=== PATIENT | female | born 1940 | race Caucasian/White ===

== ENCOUNTER 2017-02-27 08:59 | Emergency (ER) | payer MEDICARE ==
--- NOTE | 2017-02-27 11:54 | Emergency Department Report ---
ED Medical Clearance HPI - General Chief complaint: Medical Clearance Stated complaint: MEDICATION REFILL Time Seen by Provider: 02/27/17 11:47 Source: patient Mode of arrival: Ambulatory - History of Present Illness Initial comments: 76-year-old female past medical history diabetes HIV hypertension presents for complaint of accidentally dropping her NovoLog insulin bottle while administering insulin this morning. She says she dropped it on the ground and broke open and she does not have any more. Patient is requesting refill on her insulin. Denies any blurry vision and headache chest pain palpitations shortness of breath nausea. Patient states she has been in usual state of behavior and health otherwise. States she would have gone to primary care doctor but they were closed today. Compliant with Home Medications: Yes Treatments Prior to Arrival: none Home medications: Previous Rx's Medication Instructions Recorded Last Taken Type Insulin Aspart Prot/Aspart(Nf) 16 units SQ QAM #1 vial 02/27/17 Unknown Rx [Novolog Mix 70/30] Allergies/Adverse reactions: Allergies Allergy/AdvReac Type Severity Reaction Status Date / Time Penicillins Allergy Unknown Verified 02/27/17 09:06 ED Review of Systems ROS: Stated complaint: MEDICATION REFILL Other details as noted in HPI Constitutional: denies: chills, fever Eyes: denies: eye pain, eye discharge, vision change ENT: denies: ear pain, throat pain Respiratory: denies: cough, shortness of breath, wheezing Cardiovascular: denies: chest pain, palpitations Endocrine: no symptoms reported Gastrointestinal: denies: abdominal pain, nausea, diarrhea Genitourinary: denies: urgency, dysuria, discharge Musculoskeletal: denies: back pain, joint swelling, arthralgia Skin: denies: rash, lesions Neurological: denies: headache, weakness, paresthesias Psychiatric: denies: anxiety, depression Hematological/Lymphatic: denies: easy bleeding, easy bruising ED Past Medical Hx - Past Medical History Previous Medical History?: Yes Hx Hypertension: Yes Hx Diabetes: Yes Hx HIV: Yes - Surgical History Past Surgical History?: Yes Additional Surgical History: tubal ligation - Social History Smoking Status: Never Smoker Substance Use Type: None - Medications Home Medications: Home Medications Medication Instructions Recorded Confirmed Last Taken Type Insulin Aspart Prot/Aspart(Nf) 16 units SQ QAM #1 vial 02/27/17 Unknown Rx [Novolog Mix 70/30] ED Physical Exam - General Limitations: No Limitations General appearance: alert, in no apparent distress - Head Head exam: Present: atraumatic, normocephalic - Eye Eye exam: Present: normal appearance, PERRL, EOMI - ENT ENT exam: Present: mucous membranes moist - Neck Neck exam: Present: normal inspection - Respiratory Respiratory exam: Present: normal lung sounds bilaterally. Absent: respiratory distress - Cardiovascular Cardiovascular Exam: Present: regular rate, normal rhythm. Absent: systolic murmur, diastolic murmur, rubs, gallop - GI/Abdominal GI/Abdominal exam: Present: soft, normal bowel sounds - Extremities Exam Extremities exam: Present: normal inspection - Back Exam Back exam: Present: normal inspection - Neurological Exam Neurological exam: Present: alert, oriented X3 - Psychiatric Psychiatric exam: Present: normal affect, normal mood - Skin Skin exam: Present: warm, dry, intact, normal color. Absent: rash ED Course Vital Signs 02/27/17 09:03 Temperature 97.9 F Pulse Rate 96 H Respiratory 16 Rate Blood Pressure 120/75 O2 Sat by Pulse 98 Oximetry ED Medical Decision Making - Medical Decision Making A/P: Medication refill, insulin refill 1-blood glucose 188. Patient states she had something small to eat this morning and has not yet had her insulin. Patient has no systemic signs of hyperglycemia, states she feels that she is in her usual state of health is nontoxic appearing awake alert and oriented 3. States that she will go immediately to her pharmacy and refill her prescription of NovoLog 70/30 vial 16units qam, 8units w/ dinner 2-f/u up with primary care ED Disposition Clinical Impression: Medication refill Disposition: TO HOME OR SELFCARE Is pt being admited?: No Does the pt Need Aspirin: No Condition: Stable Prescriptions: Insulin Aspart Prot/Aspart(Nf) [Novolog Mix 70/30] 16 units SQ QAM #1 vial Referrals: [facility] [Outside] - 3-5 Days [facility] [place] [Outside] - 3-5 Days Time of Disposition: 11:55
[2017-02-27 12:24] VITALS: BP 130/65
== END 2017-02-27 12:03 | disposition home or self-care (01) ==
LOC: ED 08:59
DX: Z76.0 Encounter for issue of repeat prescription (principal); I10 Essential (primary) hypertension; E11.9 Type 2 diabetes mellitus without complications
CPT/HCPCS: 82962; 99282

== ENCOUNTER 2017-03-03 11:11 | Inpatient (IN) | payer MEDICARE ==
[2017-03-03] MEDS ORDERED: NACL 0.9% 1000 ML 1,000 ML IV ONE ×3 (12:49→17:03)
--- NOTE | 2017-03-03 12:54 | Emergency Department Report ---
ED Dizziness HPI - General Chief Complaint: Syncope Stated Complaint: LOW BP Time Seen by Provider: 03/03/17 12:46 Source: EMS Mode of arrival: Wheelchair Limitations: No Limitations - History of Present Illness Initial Comments: 76 years old female stated that she was in a longterm and she was feeding and all of a sudden she started having dizziness and double vision and generalized weakness. Her initial blood pressure was low but we don't have the exact number but her blood sugar was 70 and she was given Gatorade in something to eat she said she felt better after that. She denied chest pain no focal weakness numbness or tingling sensation. Patient stated that she is feeling better now. MD Complaint: dizziness, near syncope -: Sudden Timing: sudden onset Description: lightheadedness, off-balance History of Same: No Severity: moderate Improves With: rehydration - Related Data Home Medications Medication Instructions Recorded Confirmed Last Taken Clopidogrel Bisulfate [Plavix] 75 mg PO QDAY 03/03/17 03/03/17 Unknown Efavirenz/Emtricitab/Tenofovir 1 tab PO QDAY 03/03/17 03/03/17 Unknown [Atripla Tablet] Gabapentin [Neurontin] 300 mg PO BID 03/03/17 03/03/17 Unknown Insulin Aspart Prot/Aspart(Nf) 8 units SC QPM 03/03/17 03/03/17 Unknown [NovoLOG Mix 70/30 VIAL] Lisinopril [Zestril TAB] 10 mg PO QDAY 03/03/17 03/03/17 Unknown Previous Rx's Medication Instructions Recorded Last Taken Type Insulin Aspart Prot/Aspart(Nf) 16 units SQ QAM #1 vial 02/27/17 Unknown Rx [Novolog Mix 70/30] Allergies Allergy/AdvReac Type Severity Reaction Status Date / Time Penicillins Allergy Unknown Verified 02/27/17 09:06 ED Review of Systems ROS: Stated complaint: LOW BP Other details as noted in HPI Comment: All other systems reviewed and negative Constitutional: denies: chills, diaphoresis Respiratory: denies: cough, shortness of breath Cardiovascular: denies: chest pain, palpitations Gastrointestinal: denies: nausea, vomiting, hematemesis, melena, hematochezia Musculoskeletal: denies: back pain Neurological: weakness, other (double vision). denies: headache, numbness, paresthesias ED Past Medical Hx - Past Medical History Previous Medical History?: Yes Hx Hypertension: Yes Hx Diabetes: Yes Hx Psychiatric Treatment: Yes (depression) Hx Asthma: Yes Hx COPD: Yes Hx HIV: Yes Additional medical history: CAD - Surgical History Additional Surgical History: tubal ligation - Social History Smoking Status: Former Smoker Substance Use Type: None - Medications Home Medications: Home Medications Medication Instructions Recorded Confirmed Last Taken Type Insulin Aspart Prot/Aspart(Nf) 16 units SQ QAM #1 vial 02/27/17 03/03/17 Unknown Rx [Novolog Mix 70/30] Clopidogrel Bisulfate [Plavix] 75 mg PO QDAY 03/03/17 03/03/17 Unknown History Efavirenz/Emtricitab/Tenofovir 1 tab PO QDAY 03/03/17 03/03/17 Unknown History [Atripla Tablet] Gabapentin [Neurontin] 300 mg PO BID 03/03/17 03/03/17 Unknown History Insulin Aspart Prot/Aspart(Nf) 8 units SC QPM 03/03/17 03/03/17 Unknown History [NovoLOG Mix 70/30 VIAL] Lisinopril [Zestril TAB] 10 mg PO QDAY 03/03/17 03/03/17 Unknown History ED Physical Exam - General Limitations: No Limitations General appearance: alert, in no apparent distress - Head Head exam: Present: atraumatic, normocephalic - Eye Eye exam: Present: normal appearance - ENT ENT exam: Present: normal exam - Neck Neck exam: Present: normal inspection - Respiratory Respiratory exam: Present: normal lung sounds bilaterally. Absent: respiratory distress, wheezes, rales, rhonchi, stridor, chest wall tenderness, accessory muscle use, decreased breath sounds, prolonged expiratory - Cardiovascular Cardiovascular Exam: Present: regular rate, normal rhythm, normal heart sounds - GI/Abdominal GI/Abdominal exam: Present: soft. Absent: distended, tenderness, guarding, rebound, rigid, normal bowel sounds, mass, bruit, pulsatile mass - Extremities Exam Extremities exam: Present: normal inspection - Back Exam Back exam: Present: normal inspection. Absent: CVA tenderness (R), CVA tenderness (L) - Neurological Exam Neurological exam: Present: alert, oriented X3, CN II-XII intact - Skin Skin exam: Present: warm, intact, normal color ED Course Vital Signs 03/03/17 03/03/17 03/03/17 09:00 09:16 09:46 Temperature Pulse Rate Respiratory Rate Blood Pressure 99/47 109/46 118/73 O2 Sat by Pulse Oximetry 03/03/17 03/03/17 03/03/17 10:00 11:29 11:30 Temperature Pulse Rate Respiratory Rate Blood Pressure 108/66 95/44 89/50 O2 Sat by Pulse 100 Oximetry 03/03/17 03/03/17 03/03/17 11:36 11:40 11:45 Temperature Pulse Rate 68 69 71 Respiratory 18 19 21 Rate Blood Pressure 89/50 89/50 91/48 O2 Sat by Pulse 100 100 100 Oximetry 03/03/17 03/03/17 03/03/17 11:48 12:16 12:18 Temperature 98.1 F Pulse Rate 69 69 69 Respiratory 18 19 20 Rate Blood Pressure 95/55 89/48 89/48 O2 Sat by Pulse 100 100 100 Oximetry 03/03/17 03/03/17 03/03/17 12:20 12:22 12:24 Temperature Pulse Rate 69 69 68 Respiratory 19 21 19 Rate Blood Pressure 89/48 89/48 89/48 O2 Sat by Pulse 100 100 100 Oximetry 03/03/17 03/03/17 03/03/17 12:26 12:28 12:30 Temperature Pulse Rate 70 68 76 Respiratory 19 20 23 Rate Blood Pressure 89/48 89/48 94/59 O2 Sat by Pulse 100 100 100 Oximetry 03/03/17 03/03/17 03/03/17 12:32 12:34 12:36 Temperature Pulse Rate 72 75 76 Respiratory 22 24 21 Rate Blood Pressure 94/59 94/59 94/59 O2 Sat by Pulse 100 100 100 Oximetry 03/03/17 03/03/17 03/03/17 12:38 12:40 12:42 Temperature Pulse Rate 80 80 77 Respiratory 22 23 23 Rate Blood Pressure 94/59 95/55 95/55 O2 Sat by Pulse 100 100 100 Oximetry 03/03/17 03/03/17 03/03/17 12:44 12:46 12:48 Temperature Pulse Rate 74 77 79 Respiratory 25 H 23 28 H Rate Blood Pressure 95/55 102/55 102/55 O2 Sat by Pulse 100 100 100 Oximetry 03/03/17 03/03/17 03/03/17 12:50 12:52 12:54 Temperature Pulse Rate 74 79 75 Respiratory 27 H 19 26 H Rate Blood Pressure 102/55 102/55 102/55 O2 Sat by Pulse 92 100 100 Oximetry 03/03/17 03/03/17 03/03/17 12:56 12:58 13:00 Temperature Pulse Rate 76 82 77 Respiratory 28 H 14 29 H Rate Blood Pressure 102/55 102/55 101/58 O2 Sat by Pulse 100 99 100 Oximetry 03/03/17 03/03/17 03/03/17 13:02 13:04 13:20 Temperature Pulse Rate 79 77 Respiratory 31 H 24 Rate Blood Pressure 101/58 101/58 101/58 O2 Sat by Pulse 100 77 L 100 Oximetry 03/03/17 03/03/17 03/03/17 13:24 13:26 13:28 Temperature Pulse Rate Respiratory Rate Blood Pressure 101/58 101/58 101/58 O2 Sat by Pulse 100 100 100 Oximetry 03/03/17 03/03/17 03/03/17 13:32 13:34 13:36 Temperature Pulse Rate Respiratory Rate Blood Pressure 91/47 91/47 91/47 O2 Sat by Pulse 100 Oximetry 03/03/17 03/03/17 03/03/17 13:38 13:40 13:42 Temperature Pulse Rate Respiratory Rate Blood Pressure 91/47 91/47 91/47 O2 Sat by Pulse 100 100 100 Oximetry 03/03/17 03/03/17 03/03/17 13:45 14:31 14:35 Temperature Pulse Rate Respiratory 32 H Rate Blood Pressure 91/47 96/43 96/43 O2 Sat by Pulse 100 Oximetry 03/03/17 03/03/17 03/03/17 14:37 14:39 14:41 Temperature Pulse Rate 80 Respiratory 18 19 19 Rate Blood Pressure 96/43 96/43 96/43 O2 Sat by Pulse Oximetry 03/03/17 03/03/17 03/03/17 14:43 14:45 14:47 Temperature Pulse Rate 75 82 88 Respiratory 21 22 27 H Rate Blood Pressure 96/43 96/43 96/43 O2 Sat by Pulse Oximetry 03/03/17 03/03/17 03/03/17 14:49 14:51 14:53 Temperature Pulse Rate 95 H 93 H 89 Respiratory 25 H 20 35 H Rate Blood Pressure 96/43 96/43 96/43 O2 Sat by Pulse Oximetry 0903/03/17 03/03/17 14:55 14:57 14:59 Temperature Pulse Rate 90 89 93 H Respiratory 19 25 H 23 Rate Blood Pressure 96/43 96/43 96/43 O2 Sat by Pulse Oximetry 03/03/17 03/03/17 03/03/17 15:01 15:03 15:05 Temperature Pulse Rate 90 91 H 89 Respiratory 30 H 29 H 21 Rate Blood Pressure 96/43 96/43 96/43 O2 Sat by Pulse Oximetry 03/03/17 03/03/17 03/03/17 15:07 15:09 15:11 Temperature Pulse Rate 90 89 95 H Respiratory 30 H 27 H 27 H Rate Blood Pressure 96/43 96/43 96/43 O2 Sat by Pulse Oximetry 03/03/17 03/03/17 03/03/17 15:13 15:15 15:17 Temperature Pulse Rate 87 85 93 H Respiratory 21 20 22 Rate Blood Pressure 96/43 96/43 96/43 O2 Sat by Pulse 100 Oximetry 03/03/17 03/03/17 03/03/17 15:19 15:21 15:23 Temperature Pulse Rate 98 H 98 H 95 H Respiratory 32 H 29 H 20 Rate Blood Pressure 135/65 135/65 135/65 O2 Sat by Pulse 100 100 Oximetry 03/03/17 03/03/17 03/03/17 15:25 15:27 15:28 Temperature Pulse Rate 95 H 95 H 93 H Respiratory 25 H 28 H 17 Rate Blood Pressure 135/65 135/65 135/65 O2 Sat by Pulse 100 100 Oximetry 03/03/17 03/03/17 03/03/17 15:31 15:33 15:35 Temperature Pulse Rate 89 85 86 Respiratory 17 23 20 Rate Blood Pressure 197/143 197/143 197/143 O2 Sat by Pulse 99 100 100 Oximetry 03/03/17 03/03/17 03/03/17 15:37 15:39 15:41 Temperature Pulse Rate 88 84 80 Respiratory 28 H 28 H 28 H Rate Blood Pressure 197/143 197/143 197/143 O2 Sat by Pulse 100 100 Oximetry 03/03/17 03/03/17 03/03/17 15:43 15:45 15:46 Temperature Pulse Rate 81 84 77 Respiratory 25 H 23 24 Rate Blood Pressure 197/143 197/143 86/42 O2 Sat by Pulse 100 100 100 Oximetry 03/03/17 03/03/17 03/03/17 15:49 15:51 15:53 Temperature Pulse Rate 74 79 75 Respiratory 19 22 20 Rate Blood Pressure 86/42 86/42 86/42 O2 Sat by Pulse 100 100 100 Oximetry 03/03/17 03/03/17 03/03/17 15:55 15:57 15:59 Temperature Pulse Rate 76 73 72 Respiratory 24 21 21 Rate Blood Pressure 86/42 86/42 86/42 O2 Sat by Pulse 100 100 100 Oximetry 03/03/17 03/03/17 03/03/17 16:00 16:03 16:05 Temperature Pulse Rate 71 71 70 Respiratory 20 20 19 Rate Blood Pressure 83/38 197/143 197/143 O2 Sat by Pulse 100 100 100 Oximetry 03/03/17 03/03/17 03/03/17 16:07 16:09 16:11 Temperature Pulse Rate 70 70 73 Respiratory 19 20 21 Rate Blood Pressure 197/143 197/143 197/143 O2 Sat by Pulse 100 100 99 Oximetry 03/03/17 03/03/17 03/03/17 16:13 16:14 16:15 Temperature Pulse Rate 73 75 Respiratory 22 18 22 Rate Blood Pressure 197/143 69/27 O2 Sat by Pulse 99 95 100 Oximetry 03/03/17 03/03/17 03/03/17 16:17 16:19 16:20 Temperature Pulse Rate 74 81 Respiratory 23 27 H Rate Blood Pressure 69/27 69/27 69/27 O2 Sat by Pulse 99 99 100 Oximetry 03/03/17 03/03/17 03/03/17 16:47 16:49 16:50 Temperature Pulse Rate 79 Respiratory 22 Rate Blood Pressure 69/27 69/27 81/49 O2 Sat by Pulse 97 99 99 Oximetry 03/03/17 03/03/17 03/03/17 16:53 16:55 16:57 Temperature Pulse Rate 79 78 78 Respiratory 18 22 20 Rate Blood Pressure 81/49 81/49 81/49 O2 Sat by Pulse 99 99 98 Oximetry 03/03/17 03/03/17 03/03/17 16:59 17:01 17:02 Temperature Pulse Rate 78 82 80 Respiratory 17 21 17 Rate Blood Pressure 81/49 81/49 50/27 O2 Sat by Pulse 99 100 100 Oximetry 03/03/17 03/03/17 03/03/17 17:05 17:30 17:33 Temperature 98.3 F Pulse Rate 88 Respiratory 11 L 27 H Rate Blood Pressure 102/51 102/51 O2 Sat by Pulse 99 100 Oximetry 03/03/17 03/03/17 03/03/17 17:35 17:37 17:45 Temperature Pulse Rate 76 72 73 Respiratory 18 18 20 Rate Blood Pressure 102/51 102/51 99/60 O2 Sat by Pulse 100 100 100 Oximetry 03/03/17 03/03/17 03/03/17 17:51 18:00 18:11 Temperature Pulse Rate 81 78 80 Respiratory 17 21 24 Rate Blood Pressure 99/60 108/60 50/27 O2 Sat by Pulse 100 100 100 Oximetry 03/03/17 03/03/17 03/03/17 18:21 18:31 18:41 Temperature Pulse Rate 81 78 83 Respiratory 14 18 26 H Rate Blood Pressure 109/58 128/64 128/64 O2 Sat by Pulse 100 100 100 Oximetry - Reevaluation(s) Reevaluation #1: 03/03/17 16:10 Patient stated that she is feeling much better. Treatment for hyperkalemia initiated. Discussed with Dr. Ogden for admission for further treatment and management of hyperkalemia. ED Medical Decision Making - Lab Data Result diagrams: 03/03/17 12:31 03/03/17 14:33 - EKG Data -: EKG Interpreted by Wi EKG shows normal: sinus rhythm Rate: normal - EKG Data When compared to previous EKG there are: no significant change Interpretation: no acute changes - Radiology Data Radiology results: report reviewed - Medical Decision Making Patient presented to his syncope and a low blood pressure, kidney function showed increase in creatinine and BUNs this is possibly due to low blood pressure hypokalemia is corrected with insulin, dextrose, Kayexalate patient also was given calcium gluconate to protect the heart. Patient needs to be admitted to telemetry Dr. Christensen informed Critical care attestation.: If time is entered above; I have spent that time in minutes in the direct care of this critically ill patient, excluding procedure time. ED Disposition Clinical Impression: Syncope, Hyperkalemia Disposition: OP ADMIT IP TO THIS HOSP Is pt being admited?: Yes Condition: Stable
[2017-03-03 12:57] LABS: Basophils % (Auto) 1.4 % (0.0-1.8); Hematocrit 31.8 % (30.3-42.9); Hemoglobin 9.9 gm/dl (10.1-14.3); Mean Corpuscular HGB Conc 31 % (30-34); Mean Corpuscular Hemoglobin 27 pg (28-32); Mean Corpuscular Volume 87 fl (79-97); Platelet Count 263 K/mm3 (140-440); Red Blood Count 3.67 M/mm3 (3.65-5.03); Red Cell Distribution Width 15.1 % (13.2-15.2); White Blood Count 8.1 K/mm3 (4.5-11.0)
[2017-03-03 13:02] LABS: INR 1.02 (0.87-1.13)
[2017-03-03 13:20] LABS: Creatine Kinase MB 2.6 ng/mL (0.0-4.0)
[2017-03-03 13:21] LABS: Alanine Aminotransferase 12 units/L (7-56); Albumin 3.8 g/dL (3.9-5); Albumin/Globulin Ratio 0.9 %; Alkaline Phosphatase 110 units/L (35-129); Anion Gap 19 mmol/L; Bilirubin,Total < 0.20 mg/dL (0.1-1.2); Blood Urea Nitrogen 27 mg/dL (7-17); Carbon Dioxide 19 mmol/L (22-30); Chloride 102.2 mmol/L (98-107); Creatine Kinase 211 units/L (30-135); Glucose 56 mg/dL (65-100); Sodium 133 mmol/L (137-145); Total Protein 7.9 g/dL (6.3-8.2)
--- NOTE | 2017-03-03 14:14 | Cat Scan Report ---
CT HEAD WITHOUT CONTRAST: HISTORY: Syncope. TECHNIQUE: Sequential CT images without contrast. FINDINGS: Images obtained show bilateral prominence of the sulci and ventricles. There are no abnormal intra- or extra-axial blood or fluid collections. There are no focal masses or evidence of mass effect. The murray white matter differentiation appears within normal limits. Regions of periventricular decreased attenuation are consistent with microangiopathic ischemic disease. The posterior fossa structures including the fourth ventricle, cerebellum, and brainstem appear normal. A small fluid level is identified in the right maxillary sinus which could represent acute sinusitis. The remaining paranasal sinuses and mastoid air cells are clear. IMPRESSION: Evidence of atrophy and microangiopathic ischemic disease. No acute intracranial process noted. Correlate for right maxillary sinus disease.
[2017-03-03] MEDS ORDERED: D50W (25GM) Syringe IV PRN (14:33)
[2017-03-03] MEDS ORDERED: KIONEX PO ONE ×2 (14:35→21:50)
[2017-03-03 15:14] LABS: BUN/Creatinine Ratio 13.68; Calcium 8.6 mg/dL (8.4-10.2); Chloride 104.7 mmol/L (98-107)
[2017-03-03 15:41] LABS: Potassium 6.5 mmol/L (3.6-5.0)
[2017-03-03] MEDS ORDERED: CALCIUM GLUCONATE 1,000 MG in NACL 0.9% 100 ML IV ONE (16:30)
[2017-03-03] MEDS ORDERED: NACL 0.9% 1000 ML 1,000 ML ONE (16:57)
--- NOTE | 2017-03-03 19:42 | History and Physical Report ---
History of Present Illness Date of examination: 03/03/17 Date of admission: 03/03/17 16:14 Chief complaint: [place] weak and nearly passed out History of present illness: History of Present Illness 76 years old female stated that she was in a [facility] and she was feeding and all of a sudden she started having dizziness and double vision and generalized weakness. Her initial blood pressure was low but we don't have the exact number but her blood sugar was 70 and she was given Gatorade in something to eat she said she felt better after that. She denied chest pain no focal weakness numbness or tingling sensation. Patient stated that she is feeling better now. MD Complaint: dizziness, near syncope -: Sudden Timing: sudden onset Description: lightheadedness, off-balance History of Same: No Severity: moderate Improves With: rehydration - Related Data Home Medications Medication Instructions Recorded Confirmed Last Taken Clopidogrel Bisulfate [Plavix] 75 mg PO QDAY 03/03/17 03/03/17 Unknown Efavirenz/Emtricitab/Tenofovir 1 tab PO QDAY 03/03/17 03/03/17 Unknown [Atripla Tablet] Gabapentin [Neurontin] 300 mg PO BID 03/03/17 03/03/17 Unknown Insulin Aspart Prot/Aspart(Nf) 8 units SC QPM 03/03/17 03/03/17 Unknown [NovoLOG Mix 70/30 VIAL] Lisinopril [Zestril TAB] 10 mg PO QDAY 03/03/17 03/03/17 Unknown Previous Rx's Medication Instructions Recorded Last Taken Type Insulin Aspart Prot/Aspart(Nf) 16 units SQ QAM #1 vial 02/27/17 Unknown Rx [Novolog Mix 70/30] Allergies Allergy/AdvReac Type Severity Reaction Status Date / Time Penicillins Allergy Unknown Verified 02/27/17 09:06 Past Medical History Previous Medical History?: Yes Hx Hypertension: Yes Hx Diabetes: Yes Hx Psychiatric Treatment: Yes (depression) Hx Asthma: Yes Hx COPD: Yes Hx HIV: Yes Additional medical history: CAD - Surgical History Additional Surgical History: tubal ligation - Social History Smoking Status: Former Smoker Substance Use Type: None Fam Hx Htn - Medications Home Medications: Home Medications Medication Instructions Recorded Confirmed Last Taken Type Insulin Aspart Prot/Aspart(Nf) 16 units SQ QAM #1 vial 02/27/17 03/03/17 Unknown Rx [Novolog Mix 70/30] Clopidogrel Bisulfate [Plavix] 75 mg PO QDAY 03/03/17 03/03/17 Unknown History Efavirenz/Emtricitab/Tenofovir 1 tab PO QDAY 03/03/17 03/03/17 Unknown History [Atripla Tablet] Gabapentin [Neurontin] 300 mg PO BID 03/03/17 03/03/17 Unknown History Insulin Aspart Prot/Aspart(Nf) 8 units SC QPM 03/03/17 03/03/17 Unknown History [NovoLOG Mix 70/30 VIAL] Lisinopril [Zestril TAB] 10 mg PO QDAY 03/03/17 03/03/17 Unknown History Medications and Allergies Allergies Allergy/AdvReac Type Severity Reaction Status Date / Time Penicillins Allergy Unknown Verified 02/27/17 09:06 Home Medications Medication Instructions Recorded Confirmed Last Taken Type Insulin Aspart Prot/Aspart(Nf) 16 units SQ QAM #1 vial 02/27/17 03/03/17 Unknown Rx [Novolog Mix 70/30] Clopidogrel Bisulfate [Plavix] 75 mg PO QDAY 03/03/17 03/03/17 Unknown History Efavirenz/Emtricitab/Tenofovir 1 tab PO QDAY 03/03/17 03/03/17 Unknown History [Atripla Tablet] Gabapentin [Neurontin] 300 mg PO BID 03/03/17 03/03/17 Unknown History Insulin Aspart Prot/Aspart(Nf) 8 units SC QPM 03/03/17 03/03/17 Unknown History [NovoLOG Mix 70/30 VIAL] Lisinopril [Zestril TAB] 10 mg PO QDAY 03/03/17 03/03/17 Unknown History Active Meds: Active Medications Dextrose (D50w (25gm) Syringe) 25 ml IV PRN PRN PRN Reason: Hypoglycemia Review of Systems All systems: negative Constitutional: no weight loss, no weight gain, no fever, no chills, no sweats, no night sweats Eyes: bilateral: blurred vision, photophobia Ears, nose, mouth and throat: no ear pain, no ear discharge, no tinnitis, no decreased hearing, no nose pain, no nasal congestion, no nasal discharge, no sinus pressure, no sinus pain Breasts: deferred Cardiovascular: syncope, lightheadedness, no chest pain, no orthopnea, no palpitations, no rapid/irregular heart beat, no edema, no shortness of breath, no dyspnea on exertion, no paroxysmal nocturnal dyspnea, no claudication, no phlebitis, no high blood pressure, no leg edema, no decreased exercise tolerance Respiratory: no cough, no cough with sputum, no excessive sputum, no hemoptysis , no shortness of breath, no dyspnea on exertion, no congestion, no wheezing, no pleurisy, no pain, no pain on inspiration, no snoring Gastrointestinal: no abdominal pain, no nausea, no vomiting, no diarrhea, no constipation, no change in bowel habits, no hematemesis, no coffee ground emesis Genitourinary Female: no flank pain, no menorrhagia, no dysuria, no urinary frequency, no urgency, no stress incontinence Menstruation: ammenorrhea Rectal: no pain Musculoskeletal: no neck stiffness, no neck pain, no shooting arm pain, no arm numbness/tingling, no low back pain, no shooting leg pain, no leg numbness/ tingling, no redness of joints Integumentary: no rash, no pruritis, no redness, no sores, no wounds, no jaundice, no boils, no blisters Neurological: no head injury, no transient paralysis, no paralysis, no weakness , no parathesias, no numbness, no tingling, no seizures, no syncope, no tremors , no ataxia, no lack of coordination Psychiatric: no anxiety, no memory loss, no change in sleep habits, no sleep disturbances, no insomnia, no hypersomnia, no change in appetite, no change in libido, no suicidal ideation, no disorientation, no hallucinations Endocrine: no cold intolerance, no heat intolerance, no polyphagia, no excessive thirst, no polydipsia, no polyuria, no nocturia Hematologic/Lymphatic: no easy bruising, no easy bleeding Allergic/Immunologic: no urticaria, no allergic rhinitis, no wheezing Exam - Physical Exam Narrative exam: Lying comfortably - Constitutional Vitals: Temp Pulse Resp BP Pulse Ox 98.3 F 83 14 115/67 100 03/03/17 17:05 03/03/17 18:48 03/03/17 18:48 03/03/17 18:48 03/03/17 18:48 General appearance: Present: no acute distress, well-nourished - EENT Eyes: Present: PERRL ENT: hearing intact, clear oral mucosa - Neck Neck: Present: supple, normal ROM - Respiratory Respiratory effort: normal Respiratory: bilateral: CTA - Cardiovascular Rhythm: regular (68) Heart Sounds: Present: S1 & S2. Absent: rub, click - Extremities Extremities: no ischemia, pulses intact, pulses symmetrical, No edema Peripheral Pulses: within normal limits - Abdominal General gastrointestinal: Present: soft, non-tender, non-distended, normal bowel sounds Female genitourinary: Present: normal - Rectal Rectal Exam: deferred - Integumentary Integumentary: Present: clear, warm, dry - Musculoskeletal Musculoskeletal: gait normal, strength equal bilaterally - Psychiatric Psychiatric: appropriate mood/affect, intact judgment & insight - Neurologic Neurologic: CNII-XII intact, moves all extremities - Allied Health Allied health notes reviewed: nursing, case management Results - Labs CBC & Chem 7: 03/03/17 12:31 03/03/17 14:33 Labs: Laboratory Last Values WBC 8.1 K/mm3 (4.5-11.0) 03/03/17 12:31 RBC 3.67 M/mm3 (3.65-5.03) 03/03/17 12:31 Hgb 9.9 gm/dl (10.1-14.3) L 03/03/17 12:31 Hct 31.8 % (30.3-42.9) 03/03/17 12:31 MCV 87 fl (79-97) 03/03/17 12:31 MCH 27 pg (28-32) L 03/03/17 12:31 MCHC 31 % (30-34) 03/03/17 12:31 RDW 15.1 % (13.2-15.2) 03/03/17 12:31 Plt Count 263 K/mm3 (140-440) 03/03/17 12:31 Lymph % (Auto) 22.4 % (13.4-35.0) 03/03/17 12:31 [place] % (Auto) 6.0 % (0.0-7.3) 03/03/17 12:31 Eos % (Auto) 2.0 % (0.0-4.3) 03/03/17 12:31 Baso % (Auto) 1.4 % (0.0-1.8) 03/03/17 12:31 Lymph # 1.8 K/mm3 (1.2-5.4) 03/03/17 12:31 [place] # 0.5 K/mm3 (0.0-0.8) 03/03/17 12:31 Eos # 0.2 K/mm3 (0.0-0.4) 03/03/17 12:31 Baso # 0.1 K/mm3 (0.0-0.1) 03/03/17 12:31 Seg Neutrophils % 68.2 % (40.0-70.0) 03/03/17 12:31 Seg Neutrophils # 5.5 K/mm3 (1.8-7.7) 03/03/17 12:31 PT 13.9 Sec. (12.2-14.9) 03/03/17 12:31 INR 1.02 (0.87-1.13) 03/03/17 12:31 Sodium 135 mmol/L (137-145) L 03/03/17 14:33 Potassium 6.5 mmol/L (3.6-5.0) H* 03/03/17 14:33 Chloride 104.7 mmol/L (98-107) 03/03/17 14:33 Carbon Dioxide 18 mmol/L (22-30) L 03/03/17 14:33 Anion Gap 19 mmol/L 03/03/17 14:33 BUN 26 mg/dL (7-17) H 03/03/17 14:33 Creatinine 1.9 mg/dL (0.7-1.2) H 03/03/17 14:33 Estimated GFR 26 ml/min 03/03/17 14:33 BUN/Creatinine Ratio 13.68 % 03/03/17 14:33 Glucose 60 mg/dL (65-100) L 03/03/17 14:33 POC Glucose 170 (70-105) H 03/03/17 17:38 Calcium 8.6 mg/dL (8.4-10.2) 03/03/17 14:33 Magnesium 2.30 mg/dL (1.7-2.3) 03/03/17 12:31 Total Bilirubin < 0.20 mg/dL (0.1-1.2) 03/03/17 12:31 AST 20 units/L (5-40) 03/03/17 12:31 ALT 12 units/L (7-56) 03/03/17 12:31 Alkaline Phosphatase 110 units/L (35-129) 03/03/17 12:31 Total Creatine Kinase 211 units/L (30-135) H 03/03/17 12:31 CK-MB (CK-2) 2.6 ng/mL (0.0-4.0) 03/03/17 12:31 CK-MB (CK-2) Rel Index 1.2 (0-4) 03/03/17 12:31 Troponin T < 0.010 ng/mL (0.00-0.029) 03/03/17 12:31 Total Protein 7.9 g/dL (6.3-8.2) 03/03/17 12:31 Albumin 3.8 g/dL (3.9-5) L 03/03/17 12:31 Albumin/Globulin Ratio 0.9 % 03/03/17 12:31 Short CBC 03/03/17 Range/Units 12:31 WBC 8.1 (4.5-11.0) K/mm3 Hgb 9.9 L (10.1-14.3) gm/dl Hct 31.8 (30.3-42.9) % Plt Count 263 (140-440) K/mm3 BMP 03/03/17 03/03/17 12:31 14:33 Sodium 133 L 135 L Potassium 7.0 H* 6.5 H* Chloride 102.2 104.7 Carbon Dioxide 19 L 18 L BUN 27 H 26 H Creatinine 2.0 H 1.9 H Glucose 56 L 60 L Calcium 9.0 8.6 Cardiac Enzymes 03/03/17 Range/Units 12:31 Total Creatine Kinase 211 H (30-135) units/L CK-MB (CK-2) 2.6 (0.0-4.0) ng/mL Troponin T < 0.010 (0.00-0.029) ng/mL Liver Function 03/03/17 Range/Units 12:31 Total Bilirubin < 0.20 (0.1-1.2) mg/dL AST 20 (5-40) units/L ALT 12 (7-56) units/L Alkaline Phosphatase 110 (35-129) units/L Albumin 3.8 L (3.9-5) g/dL - Imaging and Cardiology EKG: report reviewed (68/min NSR cannot rule out ant infarct) Assessment and Plan Advance Directives: Yes (Full code) VTE prophylaxis?: Chemical Plan of care discussed with patient/family: Yes - Patient Problems (1) Hyperkalemia Current Visit: Yes Status: Acute Plan to address problem: Patient on Lisinopril which may cause increased k level.Also antiretrovirals.Will stop Lisinopril and start on Amlodipine 5 mg po qd. Patient given calcium gluconate Dextrose with Insulin and Kayexalate in ER. Recheck K level. (2) Syncope Current Visit: Yes Status: Acute Qualifiers: Syncope type: vasovagal syncope Encounter type: E Qualified Code(s): R55 - Syncope and collapse Plan to address problem: Syncope w/u--Echo CDS and serial CE's Lexiscan on (03/05/17 (3) BRUNO (acute kidney injury) Current Visit: Yes Status: Acute Plan to address problem: lisinopril stopped.Initiated on Amlodipine 5 mg po qd Iv fluids for now Nephrology consulted. (4) HTN (hypertension) Current Visit: Yes Status: Chronic Qualifiers: Hypertension type: essential hypertension Qualified Code(s): I10 - Essential (primary) hypertension Plan to address problem: Stopped Lisinopril and initiated on Amlodipine 5 mg po qd (5) IDDM (insulin dependent diabetes mellitus) Current Visit: Yes Status: Chronic Plan to address problem: Cont Home insulin and Coverage Check A1c (6) HIV (human immunodeficiency virus infection) Current Visit: Yes Status: Chronic Plan to address problem: Since 1992.Apparently undetectable viral load.No pcp etc.On anti retrovirals (7) HLD (hyperlipidemia) Current Visit: Yes Status: Chronic Qualifiers: Hyperlipidemia type: mixed hyperlipidemia Qualified Code(s): E78.2 - Mixed hyperlipidemia Plan to address problem: On statins (8) CAD (coronary artery disease) Current Visit: Yes Status: Chronic Qualifiers: Coronary Disease-Associated Artery/Lesion type: [place] artery [place] vs. transplanted heart: N Associated angina: without angina Plan to address problem: On pLAVIX (9) Dementia Current Visit: Yes Status: Chronic Qualifiers: Dementia type: vascular dementia Alzheimer's disease onset: A Dementia behavioral disturbance: without behavioral disturbance Qualified Code(s): F01.50 - Vascular dementia without behavioral disturbance Plan to address problem: On NAMENDA (10) DVT prophylaxis Current Visit: Yes Status: Acute Plan to address problem: On Lovenox
[2017-03-03] MEDS ORDERED: DILAUDID IV PRN (19:43)
[2017-03-03] MEDS ORDERED: AMBIEN PO PRN (19:43)
[2017-03-03] MEDS ORDERED: PERCOCET 5/325 PO PRN (19:43)
[2017-03-03] MEDS ORDERED: ZOFRAN IV PRN (19:43)
[2017-03-03] MEDS ORDERED: TYLENOL PO PRN (19:43)
[2017-03-03] MEDS ORDERED: MILK OF MAGNESIA PO PRN (19:43)
[2017-03-03] MEDS ORDERED: DULCOLAX PR PRN (19:43)
[2017-03-03] MEDS ORDERED: ATRIPLA (NF) PO SCH (20:00)
[2017-03-03] MEDS ORDERED: NACL 0.45% 1000 ML 1,000 ML IV SCH (20:00)
[2017-03-03 21:25] LABS: Creatine Kinase 207 units/L (30-135); Creatine Kinase MB 2.6 ng/mL (0.0-4.0)
[2017-03-03 21:27] LABS: BUN/Creatinine Ratio 12.1; Calcium 8.5 mg/dL (8.4-10.2); Potassium 5.8 mmol/L (3.6-5.0)
[2017-03-03] MEDS ORDERED: D50W (25GM) Syringe IV ONE (21:50)
[2017-03-03] MEDS ORDERED: D50W (25GM) Vial IV ONE (21:50)
[2017-03-03] MEDS: NOVOLOG SUB-Q SCH (22:00)
[2017-03-03] MEDS: NEURONTIN PO SCH (22:54)
[2017-03-03] MEDS: PEPCID PO SCH (22:54)
[2017-03-03] MEDS: VIREAD PO SCH (22:55)
[2017-03-03] MEDS: EMTRIVA PO SCH (22:56)
[2017-03-03] MEDS: SUSTIVA PO SCH (22:56)
[2017-03-03] MEDS: NORVASC PO SCH (23:01)
[2017-03-03] MEDS: PLAVIX PO SCH (23:02)
[2017-03-04 04:28] LABS: Basophils % (Auto) 1.5 % (0.0-1.8); Eosinophils % (Auto) 3.4 % (0.0-4.3); Hematocrit 29.1 % (30.3-42.9); Mean Corpuscular HGB Conc 31 % (30-34); Mean Corpuscular Hemoglobin 27 pg (28-32); Mean Corpuscular Volume 88 fl (79-97); Platelet Count 265 K/mm3 (140-440); Red Blood Count 3.32 M/mm3 (3.65-5.03); Red Cell Distribution Width 15.3 % (13.2-15.2); White Blood Count 8.5 K/mm3 (4.5-11.0)
[2017-03-04 04:35] LABS: Alanine Aminotransferase 14 units/L (7-56); Albumin 3.5 g/dL (3.9-5); Albumin/Globulin Ratio 0.9 %; Alkaline Phosphatase 109 units/L (35-129); Anion Gap 19 mmol/L; Bilirubin,Total < 0.20 mg/dL (0.1-1.2); Blood Urea Nitrogen 20 mg/dL (7-17); Calcium 8.5 mg/dL (8.4-10.2); Carbon Dioxide 16 mmol/L (22-30); Chloride 107.5 mmol/L (98-107); Glucose 88 mg/dL (65-100); Potassium 5.2 mmol/L (3.6-5.0); Sodium 137 mmol/L (137-145); Total Protein 7.4 g/dL (6.3-8.2)
[2017-03-04 04:38] LABS: Creatine Kinase 206 units/L (30-135); Creatine Kinase MB 3.2 ng/mL (0.0-4.0)
--- NOTE | 2017-03-04 07:35 | Consultation ---
History of Present Illness - Reason for Consult Consult date: 03/04/17 acute renal failure, chronic renal failure, hyperkalemia, metabolic acidosis - History of Present Illness The patient is a 76 years old AAF with medical history significant for Obesity, HIV, Hyperlipidemia, CAD s/p stent, hypertension and mild CKD who currently resides at [facility] was brought into the ER yesterday after she developed vertigo, double vision, dizziness and generalized weakness. Her blood sugar was low with some improvement following Gatorade administration. Her creatinine was 2 with potassium of 7 on admission. Patient was also hypotensive. After multiple doses of Kayexalate and Insulin-Dextrose her K level is 5.2 today. Patient was on Lisinopril. She is not followed by [facility]. Most of her doctors are at [place]. Past History Past Medical History: diabetes, hypertension, hyperlipidemia, other (HIV) Medications and Allergies Allergies Allergy/AdvReac Type Severity Reaction Status Date / Time Penicillins Allergy Unknown Verified 02/27/17 09:06 Home Medications Medication Instructions Recorded Confirmed Last Taken Type Insulin Aspart Prot/Aspart(Nf) 16 units SQ QAM #1 vial 02/27/17 03/03/17 Unknown Rx [Novolog Mix 70/30] Clopidogrel Bisulfate [Plavix] 75 mg PO QDAY 03/03/17 03/03/17 Unknown History Efavirenz/Emtricitab/Tenofovir 1 tab PO QDAY 03/03/17 03/03/17 Unknown History [Atripla Tablet] Gabapentin [Neurontin] 300 mg PO BID 03/03/17 03/03/17 Unknown History Insulin Aspart Prot/Aspart(Nf) 8 units SC QPM 03/03/17 03/03/17 Unknown History [NovoLOG Mix 70/30 VIAL] Lisinopril [Zestril TAB] 10 mg PO QDAY 03/03/17 03/03/17 Unknown History Active Meds: Active Medications Acetaminophen (Tylenol) 650 mg PO Q4H PRN PRN Reason: Pain MILD(1-3)/Fever >100.5/CONTRERAS Amlodipine Besylate (Norvasc) 5 mg PO QDAY [facility] Last Admin: 03/03/17 23:01 Dose: Not Given Bisacodyl (Dulcolax) 10 mg CO QDAY PRN PRN Reason: Constipation unrelieved by MOM Clopidogrel Bisulfate (Plavix) 75 mg PO QDAY [facility] Last Admin: 03/03/17 23:02 Dose: Not Given Dextrose (D50w (25gm) Syringe) 25 ml IV PRN PRN PRN Reason: Hypoglycemia Efavirenz (Sustiva) 600 mg PO QHS [facility] Last Admin: 03/03/17 22:56 Dose: 600 mg Emtricitabine (Emtriva) 200 mg PO QHS [facility] Last Admin: 03/03/17 22:56 Dose: 200 mg Enoxaparin Sodium (Lovenox) 30 mg SUB-Q QDAY [facility] Famotidine (Pepcid) 20 mg PO BID [facility] Last Admin: 03/03/17 22:54 Dose: 20 mg Gabapentin (Neurontin) 300 mg PO BID [facility] Last Admin: 03/03/17 22:54 Dose: 300 mg Hydromorphone HCl (Dilaudid) 0.5 mg IV Q3H PRN PRN Reason: Pain , Severe (7-10) Sodium Chloride (Nacl 0.45% 1000 Ml) 1,000 mls @ 75 mls/hr IV DIRECT [facility] Last Admin: 03/03/17 23:03 Dose: 75 mls/hr Insulin Aspart (Novolog) 0 units SUB-Q ACHS [facility] PRN Reason: Protocol Last Admin: 03/03/17 22:00 Dose: 2 units Insulin Human Isoph/Insulin Regular (Novolin 70/30) 8 unit SUB-Q QPM [facility] Insulin Human Isoph/Insulin Regular (Novolin 70/30) 16 unit SUB-Q QAM [facility] Magnesium Hydroxide (Milk Of Magnesia) 30 ml PO Q4H PRN PRN Reason: Constipation Ondansetron HCl (Zofran) 4 mg IV Q3H PRN PRN Reason: N/V unrelieved by Reglan Oxycodone/Acetaminophen (Percocet 5/325) 1 tab PO Q6H PRN PRN Reason: Pain, Moderate (4-6) Tenofovir Disoproxil Fumarate (Viread) 300 mg PO QHS [facility] Last Admin: 03/03/17 22:55 Dose: 300 mg Zolpidem Tartrate (Ambien) 5 mg PO QHS PRN PRN Reason: Insomnia Review of Systems Constitutional: weakness, no weight loss, no weight gain, no fever, no chills, no anorexia, no poor appetite, no chronic pain Ears, nose, mouth and throat: no epistaxis Breasts: deferred Cardiovascular: lightheadedness, high blood pressure, no chest pain, no orthopnea, no edema, no syncope, no shortness of breath, no leg edema Respiratory: no cough, no shortness of breath, no dyspnea on exertion Gastrointestinal: no abdominal pain, no nausea, no vomiting, no diarrhea, no hematemesis, no melena Genitourinary Female: no dysuria, no hematuria Rectal: no bleeding Musculoskeletal: no redness of joints Integumentary: no rash, no wounds, no jaundice Neurological: weakness, vertigo, no head injury, no parathesias, no syncope, no headaches, no convulsions, no aphasia, no paralysis Psychiatric: no change in appetite, no disorientation, no confusion Endocrine: no weight change Hematologic/Lymphatic: no easy bleeding Allergic/Immunologic: no wheezing Exam - Vital Signs Vital signs: Vital Signs BP 99/47 03/03/17 09:00 - General Appearance General appearance: well-developed, well-nourished, appears stated age, obese, other (no distress) EENT: ATNC, PERRL, mucous membranes dry, hearing intact, vision intact Neck: Present: neck supple, trachea midline Respiratory: Clear to Ascultation Heart: regular, S1S2, no murmurs Gastrointestinal: Present: normoactive bowel sounds, obese. Absent: tenderness , distended Integumentary: no rash Neurologic: no focal deficit, no asterixis, alert and oriented x3, CN 3-12 intact Musculoskeletal: Present: other (no edema) Psychiatric: mood/affect appropriate, cooperative Results - Lab Results 03/04/17 03:51 03/04/17 03:51 Most recent lab results Calcium 8.5 mg/dL (8.4-10.2) 03/04/17 03:51 Magnesium 2.30 mg/dL (1.7-2.3) 03/03/17 12:31 - Image Kidney/bladder ultrasound: pending Assessment and Plan - Patient Problems (1) BRUNO (acute kidney injury) Current Visit: Yes Status: Acute Plan to address problem: Acute kidney injury in the setting of volume depletion. Renal function is improving. Continue IV fluids. (2) Hyperkalemia Current Visit: Yes Status: Acute Plan to address problem: Hyperkalemia in the setting of BRUNO. K level is improving. Kayexalate ordered. (3) Volume depletion Current Visit: Yes Status: Acute Plan to address problem: Continue IV fluids. (4) CAD (coronary artery disease) Current Visit: Yes Status: Chronic Qualifiers: Coronary Disease-Associated Artery/Lesion type: [place] artery [place] vs. transplanted heart: N Associated angina: without angina (5) HIV (human immunodeficiency virus infection) Current Visit: Yes Status: Chronic
[2017-03-04] MEDS: NOVOLOG SUB-Q SCH ×4 (07:39→22:36)
[2017-03-04] MEDS ORDERED: KIONEX PR NR (08:00)
--- NOTE | 2017-03-04 09:20 | Progress Note ---
Assessment and Plan Assessment and plan: Patient is a 76 years old female with past medical history of HIV, hyperlipidemia, CAD, hypertension, resident of a residential admitted with double vision, dizziness and generalized weakness with multiple hypoglycemia with some improvement following Gatorade administration. Recommendation patient denied any strokelike symptoms at the time. Autonomic imbalance * A near-syncopal which resolved likely secondary to hypoglycemia. Continue to monitor. * PT OT evaluation and treatment prior to discharge * Echocardiogram pending serial cardiac enzymes pending. * Stress test cancelled as patient had a recent cardiac cath at [place]. Reports pending Hypoglycemia * Corrected. While restarting insulin will hold nighttime insulin. We will also monitor patient's by mouth intake Insulin-dependent diabetes mellitus * As noted above considered to monitor closely. Sliding scale coverage. Monitor by mouth intake. Hyperkalemia * Corrected anticipate total correction with current treatment. Patient received calcium gluconate, dextrose and insulin and Kayexalate in the ER May need Kayexalate if no improvement Acute kidney injury likely secondary to vasomotor nephropathy * Nephrology input appreciated to continue gentle hydration. Hold lisinopril. Hypertension * FITO inhibitor lisinopril discontinued patient's mother amlodipine. We'll recommend reevaluation outpatient this patient does have diabetes and if Fito or ARB cannot be restarted and changed to hydralazine, with isosorbide. HIV * Continue antiretrovirals, patient was diagnosed in 1992 per report undetectable viral load Hyperlipidemia * Continue statin therapy Dementia * Continue Namenda CAD * Continue Plavix DVT and GI prophylaxis History Interval history: Patient seen and examined in no acute distress. reports some mild improvement. Hospitalist Physical - Physical exam Narrative exam: VITAL SIGNS: Reviewed. GENERAL: The patient appeared well nourished and normally developed. Vital signs as documented. HEAD: No signs of head trauma. EYES: Pupils are equal. Extraocular motions intact. EARS: Hearing grossly intact. MOUTH: Oropharynx is normal. NECK: No adenopathy, no JVD. CHEST: Chest with clear breath sounds bilaterally. No wheezes, rales, or rhonchi. CARDIAC: Regular rate and rhythm. S1 and S2, without murmurs, gallops, or rubs. VASCULAR: No Edema. Peripheral pulses normal and equal in all extremities. ABDOMEN: Soft, without detectable tenderness. No sign of distention. No rebound or guarding, and no masses palpated. Bowel Sounds normal. MUSCULOSKELETAL: Good range of motion of all major joints. Extremities without clubbing, cyanosis or edema. NEUROLOGIC EXAM: Alert and oriented x 3. No focal sensory or strength deficits. Speech normal. Follows commands. PSYCHIATRIC: Mood normal. SKIN: No rash or lesions. - Constitutional Vitals: Temp Pulse Resp BP Pulse Ox 98.4 F 79 21 125/70 97 03/04/17 04:29 03/04/17 04:29 03/04/17 04:29 03/04/17 04:03/04/17 04:29 General appearance: Present: no acute distress, well-nourished Results - Labs CBC & Chem 7: 03/04/17 03:51 03/04/17 03:51 Labs: Laboratory Last Values WBC 8.5 K/mm3 (4.5-11.0) 03/04/17 03:51 RBC 3.32 M/mm3 (3.65-5.03) L 03/04/17 03:51 Hgb 9.0 gm/dl (10.1-14.3) L 03/04/17 03:51 Hct 29.1 % (30.3-42.9) L 03/04/17 03:51 MCV 88 fl (79-97) 03/04/17 03:51 MCH 27 pg (28-32) L 03/04/17 03:51 MCHC 31 % (30-34) 03/04/17 03:51 RDW 15.3 % (13.2-15.2) H 03/04/17 03:51 Plt Count 265 K/mm3 (140-440) 03/04/17 03:51 Lymph % (Auto) 22.2 % (13.4-35.0) 03/04/17 03:51 [place] % (Auto) 6.1 % (0.0-7.3) 03/04/17 03:51 Eos % (Auto) 3.4 % (0.0-4.3) 03/04/17 03:51 Baso % (Auto) 1.5 % (0.0-1.8) 03/04/17 03:51 Lymph # 1.9 K/mm3 (1.2-5.4) 03/04/17 03:51 [place] # 0.5 K/mm3 (0.0-0.8) 03/04/17 03:51 Eos # 0.3 K/mm3 (0.0-0.4) 03/04/17 03:51 Baso # 0.1 K/mm3 (0.0-0.1) 03/04/17 03:51 Seg Neutrophils % 66.8 % (40.0-70.0) 03/04/17 03:51 Seg Neutrophils # 5.7 K/mm3 (1.8-7.7) 03/04/17 03:51 PT 13.9 Sec. (12.2-14.9) 03/03/17 12:31 INR 1.02 (0.87-1.13) 03/03/17 12:31 Sodium 137 mmol/L (137-145) 03/04/17 03:51 Potassium 5.2 mmol/L (3.6-5.0) H 03/04/17 03:51 Chloride 107.5 mmol/L (98-107) H 03/04/17 03:51 Carbon Dioxide 16 mmol/L (22-30) L 03/04/17 03:51 Anion Gap 19 mmol/L 03/04/17 03:51 BUN 20 mg/dL (7-17) H 03/04/17 03:51 Creatinine 1.6 mg/dL (0.7-1.2) H 03/04/17 03:51 Estimated GFR 31 ml/min 03/04/17 03:51 BUN/Creatinine Ratio 12.50 % 03/04/17 03:51 Glucose 88 mg/dL (65-100) 03/04/17 03:51 POC Glucose 178 (70-105) H 03/03/17 22:01 Calcium 8.5 mg/dL (8.4-10.2) 03/04/17 03:51 Magnesium 2.30 mg/dL (1.7-2.3) 03/03/17 12:31 Total Bilirubin < 0.20 mg/dL (0.1-1.2) 03/04/17 03:51 AST 20 units/L (5-40) 03/04/17 03:51 ALT 14 units/L (7-56) 03/04/17 03:51 Alkaline Phosphatase 109 units/L (35-129) 03/04/17 03:51 Total Creatine Kinase 206 units/L (30-135) H 03/04/17 03:51 CK-MB (CK-2) 3.2 ng/mL (0.0-4.0) 03/04/17 03:51 CK-MB (CK-2) Rel Index 1.5 (0-4) 03/04/17 03:51 Troponin T < 0.010 ng/mL (0.00-0.029) 03/04/17 03:51 Total Protein 7.4 g/dL (6.3-8.2) 03/04/17 03:51 Albumin 3.5 g/dL (3.9-5) L 03/04/17 03:51 Albumin/Globulin Ratio 0.9 % 03/04/17 03:51
[2017-03-04] MEDS ORDERED: INSULIN ASPART PROTAMINE SQ SCH (10:00)
[2017-03-04] MEDS ORDERED: INSULIN ASPART SQ SCH (10:00)
[2017-03-04] MEDS: NORVASC PO SCH (10:06)
[2017-03-04] MEDS: PEPCID PO SCH ×2 (10:07→22:28)
[2017-03-04 11:09] LABS: Creatine Kinase MB 4.3 ng/mL (0.0-4.0)
[2017-03-04 11:12] LABS: Creatine Kinase 226 units/L (30-135)
[2017-03-04] MEDS: NEURONTIN PO SCH ×2 (13:28→22:28)
[2017-03-04] MEDS: PLAVIX PO SCH (13:28)
[2017-03-04] MEDS: LOVENOX SUB-Q SCH (13:29)
[2017-03-04] MEDS ORDERED: [UNRECOGNIZED DRUG - OTHER] SC SCH (18:00)
[2017-03-04] MEDS ORDERED: INSULIN ASPART PROTAMINE SC SCH (18:00)
[2017-03-04] MEDS: EMTRIVA PO SCH (22:28)
[2017-03-04] MEDS: SUSTIVA PO SCH (22:29)
[2017-03-04] MEDS: VIREAD PO SCH (22:29)
[2017-03-05 00:18] VITALS: BP 112/62
[2017-03-05 06:21] LABS: BUN/Creatinine Ratio 15.38; Calcium 8.3 mg/dL (8.4-10.2); Chloride 105.9 mmol/L (98-107)
[2017-03-05] MEDS: NOVOLOG SUB-Q SCH ×2 (08:03→13:03)
--- NOTE | 2017-03-05 08:19 | Progress Note ---
Assessment and Plan - Patient Problems (1) BRUNO (acute kidney injury) Status: Acute Plan to address problem: Acute kidney injury in the setting of volume depletion. Renal function is better and close to her baseline. (2) Hyperkalemia Status: Acute Plan to address problem: Hyperkalemia in the setting of BRUNO. K level is better. Low potassium diet. Avoid ACEI or ARB. (3) Volume depletion Status: Acute Plan to address problem: Continue IV fluids. (4) CAD (coronary artery disease) Status: Chronic Qualifiers: Coronary Disease-Associated Artery/Lesion type: [place] artery [place] vs. transplanted heart: N Associated angina: without angina (5) HIV (human immunodeficiency virus infection) Status: Chronic Subjective Date of service: 03/05/17 Interval history: Feeling better. Objective - Vital Signs Vital signs: Vital Signs - 12hr 03/05/17 00:17 Respiratory 20 Rate Blood Pressure 112/62 [Left] O2 Sat by Pulse 97 Oximetry - General Appearance General appearance: well-developed, well-nourished, appears stated age, obese, other (no distress) EENT: ATNC, PERRL, mucous membranes moist, hearing intact, vision intact Neck: supple Respiratory: Present: Clear to Ascultation Cardiology: regular, S1S2, no murmurs Gastrointestinal: normoactive bowel sounds, no tenderness, obese Integumentary: no rash Neurologic: no focal deficit, no asterixis, alert and oriented x3, CN 3-12 intact Musculoskeletal: other (no edema) Psychiatric: mood/affect appropriate, cooperative - Lab 03/04/17 03:51 03/05/17 05:29 Most recent lab results Calcium 8.3 mg/dL (8.4-10.2) L 03/05/17 05:29 Magnesium 2.30 mg/dL (1.7-2.3) 03/03/17 12:31
[2017-03-05 09:15] LABS: Bilirubin,Urine NEG (Negative); Blood,Urine NEG (Negative); Ketones,Urine NEG (Negative); Leukocyte Esterase,Urine LG (Negative); Nitrite,Urine NEG (Negative); Urobilinogen,Urine < 2.0 mg/dL (<2.0)
[2017-03-05 09:16] LABS: WBC,Urine > 182.0 /HPF (0.0-6.0)
--- NOTE | 2017-03-05 09:50 | Discharge Summary ---
Providers - Providers Date of Admission: 03/03/17 16:14 Attending physician: TIFF TILLEY MD 03/03/17 19:43 Consult to Physician [CONS] Routine Consulting Provider: DENVER MAYER Reason For Exam: Cr 2.0 Place consult to:: Dr. Mayer Notified:: Genet BURTON Was contact made?: Yes If yes, spoke with:: Dr. Mayer Time called:: 09:30 03/04/17 09:24 Occupational Therapy Evaluate and Treat [CONS] Routine Comment: Reason For Exam: snf assess Physical Therapy Evaluation and Treat [CONS] Routine Comment: Reason For Exam: snf assess Primary care physician: [employer] Hospitalization Reason for admission: syncope Condition: Stable Hospital course: Patient is a 76 years old female with past medical history of HIV, hyperlipidemia, CAD, hypertension, resident of a [facility] admitted with double vision, dizziness and generalized weakness with hypoglycemia with some improvement following Gatorade administration. Recommendation patient denied any strokelike symptoms at the time. Autonomic imbalance * A near-syncopal which resolved likely secondary to hypoglycemia. * Stress test cancelled as patient had a recent cardiac cath at [place]. Reports pending * Echocardiogram revealed a preserved left ventricular function but showed diastolic relaxation abnormality. Diastolic congestive heart failure stable Acute Cystitis-POA * Treated with Cipro x 3 days Hypoglycemia * Corrected. Adjustments were made to her insulin to prevent over hypoglycemic episodes. Education was also provided. Insulin-dependent diabetes mellitus * As noted above considered to monitor closely. Sliding scale coverage. Monitor by mouth intake. Hyperkalemia * Corrected anticipate total correction with current treatment. Patient received calcium gluconate, dextrose and insulin and Kayexalate in the ER May need Kayexalate if no improvement Acute kidney injury likely secondary to vasomotor nephropathy * Nephrology input appreciated to continue gentle hydration. Lisinopril was held patient to have a repeat study constipation and it can be restarted at the time. Hypertension * FITO inhibitor lisinopril discontinued patient's mother amlodipine. We'll recommend reevaluation outpatient this patient does have diabetes and if Fito or ARB cannot be restarted CONSIDER CHANGING TO hydralazine, with isosorbide ON FOLLOW UP WITH PCP OR [employer] HIV * Continue antiretrovirals, patient was diagnosed in 1992 per report undetectable viral load Hyperlipidemia * Continue statin therapy Dementia * Continue Namenda CAD * Continue Plavix Disposition: DC-01 TO HOME OR SELFCARE Time spent for discharge: 35 mins Core Measure Documentation - Palliative Care Palliative Care/ Comfort Measures: Not Applicable - Core Measures Any of the following diagnoses?: none - VTE Discharge Requirements Deep Vein Thrombosis/Pulmonary Embolism Present on Admission: No Exam - Physical Exam Narrative exam: VITAL SIGNS: Reviewed. GENERAL: The patient appeared well nourished and normally developed. Vital signs as documented. HEAD: No signs of head trauma. EYES: Pupils are equal. Extraocular motions intact. EARS: Hearing grossly intact. MOUTH: Oropharynx is normal. NECK: No adenopathy, no JVD. CHEST: Chest with clear breath sounds bilaterally. No wheezes, rales, or rhonchi. CARDIAC: Regular rate and rhythm. S1 and S2, without murmurs, gallops, or rubs. VASCULAR: No Edema. Peripheral pulses normal and equal in all extremities. ABDOMEN: Soft, without detectable tenderness. No sign of distention. No rebound or guarding, and no masses palpated. Bowel Sounds normal. MUSCULOSKELETAL: Good range of motion of all major joints. Extremities without clubbing, cyanosis or edema. NEUROLOGIC EXAM: Alert and oriented x 3. No focal sensory or strength deficits. Speech normal. Follows commands. PSYCHIATRIC: Mood normal. SKIN: No rash or lesions. - Constitutional Vitals: Temp Pulse Resp BP Pulse Ox 98.6 F 78 20 112/62 97 03/04/17 16:00 03/04/17 16:00 03/05/17 00:17 03/05/17 00:17 03/05/17 00:17 Plan Activity: advance as tolerated, fall precautions Diet: diabetic Special Instructions: record daily BP diary, record blood sugar diary Follow up with: RODRIGO MORELOS MD [Primary Care Provider] - 3-5 Days DENVER MAYER MD [Staff Physician] - 7 Days Prescriptions: amLODIPine [Norvasc] 5 mg PO QDAY #30 tablet Ciprofloxacin HCl [Ciprofloxacin TAB] 500 mg PO Q12HR #6 tab
[2017-03-05] MEDS: LOVENOX SUB-Q SCH (13:00)
[2017-03-05] MEDS: PLAVIX PO SCH (13:02)
[2017-03-05] MEDS: NEURONTIN PO SCH (13:02)
[2017-03-05] MEDS: PEPCID PO SCH (13:02)
[2017-03-05] MEDS: NORVASC PO SCH (13:02)
--- NOTE | 2017-03-05 14:24 | Ultrasound Report ---
ULTRASOUND RENAL INDICATION: Acute renal failure. COMPARISON: None similar. FINDINGS: Renal sonography suggests top normal renal cortical echogenicity, not as evident on the right due to possible echogenic coarsening of imaged liver. Grossly preserved renal contours. Mild bilateral hydronephrosis suspected prevoid, though disappeared on the post void images. RIGHT KIDNEY measures 8.8 x 4.4 x 5.3 cm with cortical thickness of 1.4 cm. LEFT KIDNEY estimated at 10.6 x 2.5 x 4 cm with cortical thickness of 1.1 cm. URINARY BLADDER within normal limits. CONCLUSION: 1. Mild bilateral hydronephrosis, though resolved on postvoid images, as described. 2. Slight underlying medical renal disease and fatty liver questioned sonographically. Please correlate. Thank you for the opportunity to participate in this patient's care.
== END 2017-03-05 13:30 | disposition home or self-care (01) | DRG 682 ==
LOC: ED 11:11 → 4A 16:14
PROVIDERS: ADMIT Internal Medicine; ATTEND Internal Medicine
DX: N17.0 Acute kidney failure with tubular necrosis (principal); B20 Human immunodeficiency virus [HIV] disease; I13.0 Hypertensive heart and chronic kidney disease with heart failure and stage 1 through stage 4 chronic kidney disease, or unspecified chronic kidney disease; I50.30 Unspecified diastolic (congestive) heart failure; N30.00 Acute cystitis without hematuria; G90.8 Other disorders of autonomic nervous system; E87.5 Hyperkalemia; Z79.4 Long term (current) use of insulin; Z88.0 Allergy status to penicillin; F32.9 Major depressive disorder, single episode, unspecified; J44.9 Chronic obstructive pulmonary disease, unspecified; I25.10 Atherosclerotic heart disease of native coronary artery without angina pectoris; Z98.51 Tubal ligation status; Z87.891 Personal history of nicotine dependence; F03.90 Unspecified dementia, unspecified severity, without behavioral disturbance, psychotic disturbance, mood disturbance, and anxiety; E78.5 Hyperlipidemia, unspecified; E11.22 Type 2 diabetes mellitus with diabetic chronic kidney disease; N18.9 Chronic kidney disease, unspecified; E11.649 Type 2 diabetes mellitus with hypoglycemia without coma
CPT/HCPCS: 36415; 70450; 76770; 80048; 80053; 81001; 82550; 82553; 82570; 82962; 83735; 84300; 84484; 85025; 85610; 93005; 93010; 93306; 93880; 96361; 96365; 96366; 96375; J0610; J1650; J1815; J7030

== ENCOUNTER 2017-12-04 19:17 | Inpatient (IN) | payer MEDICARE ==
[2017-12-04] MEDS ORDERED: NACL 0.9% 1000 ML 1,000 ML IV ONE (19:47)
[2017-12-04] MEDS ORDERED: ASPIRIN PO ONE (19:47)
[2017-12-04] MEDS ORDERED: DUONEB *Not for PRN Use IH ONE (19:48)
--- NOTE | 2017-12-04 19:53 | Emergency Department Report ---
ED Chest Pain HPI - General Chief Complaint: Dyspnea/Respdistress Stated Complaint: DIFFUCULTY IN BREATHING Time Seen by Provider: 12/04/17 19:34 Source: patient, family, EMS Mode of arrival: Stretcher Limitations: No Limitations - History of Present Illness Initial Comments: ms Chavez is a 76 year-old woman with hx of HTN, DM, IDDM, HIV (undetectable, normal CD4+ on meds), CAd (s/p 4 stents) who presents with shortness of breath. 3 days of cough, shortness of breath. Endorses fever. Substernal chest pain that worsens with breathing, movement. On plavix. Cough is productive. fever, chills, sweats. Decreased PO. MD Complaint: chest pain, other (dyspnea) -: Gradual Onset: during rest, during exertion Pain Location: substernal Pain Radiation: none Severity: moderate Severity scale (0 -10): 10 Quality: heaviness Worsens With: inspiration Other Symptoms: cough, fever Treatments Prior to Arrival: none - Related Data Home Medications Medication Instructions Recorded Confirmed Last Taken Clopidogrel Bisulfate [Plavix] 75 mg PO QDAY 03/03/17 03/11/17 Unknown Efavirenz/Emtricitab/Tenofovir 1 tab PO QDAY 03/03/17 03/11/17 Unknown [Atripla Tablet] Gabapentin [Neurontin] 300 mg PO BID 03/03/17 03/11/17 Unknown Insulin Aspart Prot/Aspart(Nf) 8 units SC QPM 03/03/17 03/11/17 Unknown [NovoLOG Mix 70/30 VIAL] Previous Rx's Medication Instructions Recorded Last Taken Type Insulin Aspart Prot/Aspart(Nf) 16 units SQ QAM #1 vial 02/27/17 Unknown Rx [NovoLOG Mix 70/30 VIAL] Ciprofloxacin HCl [Ciprofloxacin 500 mg PO Q12HR #6 tab 03/05/17 Unknown Rx TAB] amLODIPine [Norvasc] 5 mg PO QDAY #30 tablet 03/05/17 Unknown Rx Levofloxacin [Levaquin] 750 mg PO QDAY #8 tablet 03/12/17 Unknown Rx Allergies Allergy/AdvReac Type Severity Reaction Status Date / Time Penicillins Allergy Unknown Verified 02/27/17 09:06 Heart Score - HEART Score History: Slightly suspicious EKG: Normal Age: > 65 Risk factors: > 3 risk factors or hx of atherosclerotic disease Troponin: < normal limit HEART Score: 4 ED Review of Systems ROS: Stated complaint: DIFFUCULTY IN BREATHING Other details as noted in HPI Comment: All other systems reviewed and negative ED Past Medical Hx - Past Medical History Previous Medical History?: Yes Hx Hypertension: Yes Hx Congestive Heart Failure: Yes Hx Diabetes: Yes Hx Psychiatric Treatment: Yes (depression) Hx Asthma: Yes Hx COPD: Yes Hx HIV: Yes Additional medical history: CAD - Surgical History Hx Coronary Stent: Yes Additional Surgical History: tubal ligation, stents - Social History Smoking Status: Unknown if ever smoked Substance Use Type: None - Medications Home Medications: Home Medications Medication Instructions Recorded Confirmed Last Taken Type Insulin Aspart Prot/Aspart(Nf) 16 units SQ QAM #1 vial 02/27/17 03/11/17 Unknown Rx [NovoLOG Mix 70/30 VIAL] Clopidogrel Bisulfate [Plavix] 75 mg PO QDAY 03/03/17 03/11/17 Unknown History Efavirenz/Emtricitab/Tenofovir 1 tab PO QDAY 03/03/17 03/11/17 Unknown History [Atripla Tablet] Gabapentin [Neurontin] 300 mg PO BID 03/03/17 03/11/17 Unknown History Insulin Aspart Prot/Aspart(Nf) 8 units SC QPM 03/03/17 03/11/17 Unknown History [NovoLOG Mix 70/30 VIAL] Ciprofloxacin HCl [Ciprofloxacin 500 mg PO Q12HR #6 tab 03/05/17 03/11/17 Unknown Rx TAB] amLODIPine [Norvasc] 5 mg PO QDAY #30 tablet 03/05/17 03/11/17 Unknown Rx Levofloxacin [Levaquin] 750 mg PO QDAY #8 tablet 03/12/17 Unknown Rx ED Physical Exam - General Limitations: No Limitations General appearance: alert, in no apparent distress - Head Head exam: Present: atraumatic, normocephalic - Eye Eye exam: Present: normal appearance - ENT ENT exam: Present: mucous membranes moist - Neck Neck exam: Present: normal inspection - Respiratory Respiratory exam: Present: other (expiratory wheeze that clears with coughing. good air movement in all [place]). Absent: respiratory distress - Cardiovascular Cardiovascular Exam: Present: regular rate, normal rhythm. Absent: systolic murmur, diastolic murmur, rubs, gallop - GI/Abdominal GI/Abdominal exam: Present: soft. Absent: distended, tenderness - Extremities Exam Extremities exam: Present: normal inspection - Back Exam Back exam: Present: normal inspection - Neurological Exam Neurological exam: Present: alert, oriented X3 - Psychiatric Psychiatric exam: Present: normal affect, normal mood - Skin Skin exam: Present: warm, dry, intact, normal color. Absent: rash ED Course Vital Signs 12/04/17 12/04/17 12/04/17 19:32 19:43 19:45 Temperature 99.0 F Pulse Rate 96 H 99 H 109 H Pulse Rate [ Anterior Bilateral Throughout] Respiratory 28 H 26 H 22 Rate Respiratory Rate [Anterior Bilateral Throughout] Blood Pressure 136/68 136/68 Blood Pressure 136/68 [Right] O2 Sat by Pulse 95 Oximetry 12/04/17 12/04/17 12/04/17 20:00 20:15 20:18 Temperature Pulse Rate 99 H 128 H Pulse Rate [ 97 H Anterior Bilateral Throughout] Respiratory 16 26 H Rate Respiratory 26 H Rate [Anterior Bilateral Throughout] Blood Pressure 119/74 119/74 Blood Pressure [Right] O2 Sat by Pulse 88 Oximetry 12/04/17 12/04/17 12/04/17 20:22 20:28 20:31 Temperature Pulse Rate Pulse Rate [ 99 H Anterior Bilateral Throughout] Respiratory 37 H Rate Respiratory 25 H Rate [Anterior Bilateral Throughout] Blood Pressure 155/88 Blood Pressure [Right] O2 Sat by Pulse 97 Oximetry 12/04/17 12/04/17 12/04/17 20:42 20:45 21:00 Temperature Pulse Rate 100 H 100 H Pulse Rate [ Anterior Bilateral Throughout] Respiratory 20 26 H 24 Rate Respiratory Rate [Anterior Bilateral Throughout] Blood Pressure 119/74 147/80 Blood Pressure [Right] O2 Sat by Pulse Oximetry 12/04/17 21:15 Temperature Pulse Rate 99 H Pulse Rate [ Anterior Bilateral Throughout] Respiratory 27 H Rate Respiratory Rate [Anterior Bilateral Throughout] Blood Pressure 155/88 Blood Pressure [Right] O2 Sat by Pulse 100 Oximetry ED Medical Decision Making - Lab Data Result diagrams: 12/04/17 20:42 12/04/17 20:42 - EKG Data -: EKG Interpreted by Wa ([id number]) EKG shows normal: sinus rhythm, axis (normal), intervals (wnl), ST-T waves ( without evidence of acute ischemia) Rate: normal - Radiology Data PROCEDURE: XR CHEST 1V AP TECHNIQUE: Chest radiograph anteroposterior view. HISTORY: Chest pain. COMPARISON: No prior studies are available for comparison. FINDINGS: Heart: The heart size is top-normal. Mediastinum/Vessels: Aortic tortuosity. Lungs/Pleural space: Low lung volumes. Perihilar and bibasilar opacities. Symmetric biapical pleural thickening. Bony thorax: Mild osteopenia with degenerative changes of spine. Life support devices: None. IMPRESSION: Heart size top-normal. Aortic tortuosity. Low lung volumes with perihilar and bibasilar opacities. Consider bronchovascular crowding/atelectasis, also consider mild congestive heart failure or pneumonitis. - Medical Decision Making Ms Chavez is a 76 year-old woman who presents with cough, fevers, shortness of breath, chest pain. 2 days duration. No radiation of pain. Exam with chest congestion, no wheezing/rales. VSS on room air. Suspect this is PNA, ACS, URI. Much less likely PE based on history and exam. CXR without focal infiltrate. Given breathing treatment and asa. EKg non-ischemic. trop neg. WBC normal. Lytes wnl. Self-reported normal CD4+ count. Low clinical suspicion for PCP pneumonia. No LDH ordered. Suspect this is atypical PNA based on symptoms and history. 1L NS. Giving levaquin 750mg PO. Was on 2L NC. When taken off, is tachypneic to 30 with HR 100-105. Placed back on 2L. Will admit to observation for atypical PNA and shortness of breath. Has poor social situation, lives in homeless alf in which she cannot stay during the day. Critical Care Time: No Critical care attestation.: If time is entered above; I have spent that time in minutes in the direct care of this critically ill patient, excluding procedure time. ED Disposition Clinical Impression: Atypical pneumonia Disposition: DC- OP ADMIT IP TO THIS HOSP Is pt being admited?: Yes Does the pt Need Aspirin: No Condition: Stable Referrals: PRIMARY CARE, [Primary Care Provider] - 3-5 Days
--- NOTE | 2017-12-04 20:45 | XRay Report ---
FINAL REPORT PROCEDURE: XR CHEST 1V AP TECHNIQUE: Chest radiograph anteroposterior view. HISTORY: Chest pain. COMPARISON: No prior studies are available for comparison. FINDINGS: Heart: The heart size is top-normal. Mediastinum/Vessels: Aortic tortuosity. Lungs/Pleural space: Low lung volumes. Perihilar and bibasilar opacities. Symmetric biapical pleural thickening. Bony thorax: Mild osteopenia with degenerative changes of spine. Life support devices: None. IMPRESSION: Heart size top-normal. Aortic tortuosity. Low lung volumes with perihilar and bibasilar opacities. Consider bronchovascular crowding/atelectasis, also consider mild congestive heart failure or pneumonitis.
[2017-12-04 21:01] LABS: Hematocrit 33.6 % (30.3-42.9); Hemoglobin 10.6 gm/dl (10.1-14.3); Mean Corpuscular HGB Conc 32 % (30-34); Mean Corpuscular Hemoglobin 28 pg (28-32); Mean Corpuscular Volume 87 fl (79-97); Platelet Count 213 K/mm3 (140-440); Red Blood Count 3.85 M/mm3 (3.65-5.03); Red Cell Distribution Width 16.5 % (13.2-15.2)
[2017-12-04 21:22] LABS: Lymphocytes % (Auto) 10.6 % (13.4-35.0); Monocytes % (Auto) 8.9 % (0.0-7.3)
[2017-12-04 21:23] LABS: Alanine Aminotransferase 14 units/L (7-56); Albumin 4.1 g/dL (3.9-5); BUN/Creatinine Ratio 16; Basophils % (Auto) 0.5 % (0.0-1.8); Blood Urea Nitrogen 16 mg/dL (7-17); Calcium 8.9 mg/dL (8.4-10.2); Eosinophils % (Auto) 3.5 % (0.0-4.3); Hemolysis Index 16
[2017-12-04 21:25] LABS: Eosinophils # (Auto) 0.3 K/mm3 (0.0-0.4); Lymphocytes # (Auto) 0.8 K/mm3 (1.2-5.4); Monocytes # (Auto) 0.7 K/mm3 (0.0-0.8)
[2017-12-04] MEDS ORDERED: LEVAQUIN PO ONE (21:37)
[2017-12-04] MEDS ORDERED: TYLENOL PO PRN (22:56)
[2017-12-04] MEDS ORDERED: D50W (25GM) Syringe IV PRN (22:56)
[2017-12-04] MEDS ORDERED: SODIUM CHLORIDE FLUSH SYRINGE 10 ML IV PRN (22:56)
[2017-12-04] MEDS ORDERED: ZOFRAN IV PRN (22:56)
--- NOTE | 2017-12-04 22:59 | History and Physical Report ---
History of Present Illness Date of examination: 12/04/17 History of present illness: 76-year-old woman with a history of hypertension, diabetes, HIV, asthma, CAD, depression comes to the ER for evaluation of shortness of breath, cough productive of yellow-green phlegm for 2 days. Admit to chills, fever Review Of Systems: Constitutional: no weight loss Ears, eyes, nose, mouth and throat: no nasal congestion, no nasal discharge, no sinus pressure, blurry vision, diplopia Neck: No neck pain or rigidity. Cardiovascular: No palpitations, chest pain Respiratory:+ shortness of breath, cough Gastrointestinal: No abdominal pain, hematochezia Genitourinary : no dysuria, frequency , hematuria Musculoskeletal: no muscle ache Integumentary: no rash, no pruritis Neurological: no parathesias, focal weakness Endocrine: no cold or heat intolerance, no polyuria or polydipsia Hematologic/Lymphatic: no easy bruising, no easy bleeding, no gland swelling Allergic/Immunologic: no urticaria, no angioedema. PAST MEDICAL HISTORY:hypertension, diabetes, HIV, asthma, CAD, depression PAST SURGICAL HISTORY: None FAMILY HISTORY: Hypertension Medications and Allergies Allergies Allergy/AdvReac Type Severity Reaction Status Date / Time Penicillins Allergy Unknown Verified 02/27/17 09:06 Home Medications Medication Instructions Recorded Confirmed Last Taken Type Insulin Aspart Prot/Aspart(Nf) 16 units SQ QAM #1 vial 02/27/17 03/11/17 Unknown Rx [NovoLOG Mix 70/30 VIAL] Clopidogrel Bisulfate [Plavix] 75 mg PO QDAY 03/03/17 03/11/17 Unknown History Efavirenz/Emtricitab/Tenofovir 1 tab PO QDAY 03/03/17 03/11/17 Unknown History [Atripla Tablet] Gabapentin [Neurontin] 300 mg PO BID 03/03/17 03/11/17 Unknown History Insulin Aspart Prot/Aspart(Nf) 8 units SC QPM 03/03/17 03/11/17 Unknown History [NovoLOG Mix 70/30 VIAL] Ciprofloxacin HCl [Ciprofloxacin 500 mg PO Q12HR #6 tab 03/05/17 03/11/17 Unknown Rx TAB] amLODIPine [Norvasc] 5 mg PO QDAY #30 tablet 03/05/17 03/11/17 Unknown Rx Levofloxacin [Levaquin] 750 mg PO QDAY #8 tablet 03/12/17 Unknown Rx Exam - Physical Exam Narrative exam: Gen. appearance: Patient lying in bed, no apparent distress HEENT: Normocephalic, atraumatic, pupils equally round and reactive to light, extraocular movement intact, and no sclericterus,. No JVD or thyromegaly or nodule,neck supple, no carotid bruit ,mucous membranes moist, no exudate or erythema Heart: S1, S2, regular rate and rhythm Lungs: CCrackles bilaterally, breathing comfortable Abdomen: Positive bowel sounds, nontender, nondistended, no organomegaly Extremity: No edema, cyanosis, clubbing Skin: No rash, nodules, warm, dry Neuro: Oriented 3, cranial nerves II-12 intact, speech is fluent, motor and sensory intact - Constitutional Vitals: Temp Pulse Resp BP Pulse Ox 99.0 F 99 H 27 H 155/88 100 12/04/17 19:43 12/04/17 21:15 12/04/17 21:15 12/04/17 21:15 12/04/17 21:15 Results - Labs CBC & Chem 7: 12/04/17 20:42 12/04/17 20:42 Labs: Abnormal lab results 12/04/17 12/04/17 Range/Units 20:42 20:42 RDW 16.5 H (13.2-15.2) % Lymph % (Auto) 10.6 L (13.4-35.0) % [place] % (Auto) 8.9 H (0.0-7.3) % Lymph # 0.8 L (1.2-5.4) K/mm3 Seg Neutrophils % 76.5 H (40.0-70.0) % Carbon Dioxide 18 L (22-30) mmol/L Glucose 164 H (65-100) mg/dL Alkaline Phosphatase 169 H (35-129) units/L - Imaging and Cardiology Chest x-ray: image reviewed Assessment and Plan Assessment Community acquired pneumonia hypertension diabetes HIV asthma CAD depression Plan Admit to medicine Start IV levaquin, nebulizer treatments Check fingerstick, start insulin sliding scale DVt prophalaxis
[2017-12-04] MEDS ORDERED: APRESOLINE IV PRN (23:21)
[2017-12-04] MEDS ORDERED: LEVAQUIN ONE (23:37)
[2017-12-05] MEDS: PERCOCET 5/325 PO PRN (00:49)
[2017-12-05] MEDS: DUONEB *Not for PRN Use IH SCH ×4 (03:08→19:57)
[2017-12-05 08:18] LABS: Basophils # (Auto) 0.1 K/mm3 (0.0-0.1); Basophils % (Auto) 1.4 % (0.0-1.8); Eosinophils # (Auto) 0.3 K/mm3 (0.0-0.4); Eosinophils % (Auto) 4.4 % (0.0-4.3); Hematocrit 31.8 % (30.3-42.9); Lymphocytes # (Auto) 1.1 K/mm3 (1.2-5.4); Lymphocytes % (Auto) 18.6 % (13.4-35.0); Mean Corpuscular HGB Conc 32 % (30-34); Mean Corpuscular Hemoglobin 27 pg (28-32); Mean Corpuscular Volume 87 fl (79-97); Monocytes # (Auto) 0.6 K/mm3 (0.0-0.8); Monocytes % (Auto) 9.5 % (0.0-7.3); Platelet Count 197 K/mm3 (140-440); Red Blood Count 3.66 M/mm3 (3.65-5.03); Red Cell Distribution Width 16.4 % (13.2-15.2)
[2017-12-05 08:39] LABS: BUN/Creatinine Ratio 13; Blood Urea Nitrogen 12 mg/dL (7-17); Calcium 8.3 mg/dL (8.4-10.2); Hemolysis Index 28
[2017-12-05] MEDS ORDERED: INSULIN ASPART PROTAMINE SQ SCH (10:00)
[2017-12-05] MEDS ORDERED: EFAVIRENZ PO SCH (10:00)
[2017-12-05] MEDS ORDERED: TENOFOVIR PO SCH (10:00)
[2017-12-05] MEDS ORDERED: EMTRICITAB PO SCH (10:00)
[2017-12-05] MEDS ORDERED: LEVAQUIN 750MG/150ML 750 MG/150 ML BAG IV ONE (10:00)
[2017-12-05] MEDS ORDERED: INSULIN ASPART SQ SCH (10:00)
[2017-12-05] MEDS: HumaLOG SUB-Q SCH ×4 (10:52→22:51)
[2017-12-05] MEDS: NEURONTIN PO SCH ×2 (10:53→22:38)
[2017-12-05] MEDS: PLAVIX PO SCH (10:54)
[2017-12-05] MEDS: EMTRIVA PO SCH (10:55)
[2017-12-05] MEDS: NORVASC PO SCH (10:58)
[2017-12-05] MEDS: VIREAD PO SCH (11:00)
[2017-12-05] MEDS: SUSTIVA PO SCH (11:01)
[2017-12-05] MEDS: SODIUM CHLORIDE FLUSH SYRINGE 10 ML IV SCH ×2 (11:03→22:39)
--- NOTE | 2017-12-05 12:01 | Progress Note ---
Assessment and Plan Assessment and plan: Pneumonia. Bilateral infiltrates on CXR. Pneumonia versus pulm edema. Will get Echo, BNP continue Levaquin iv for pneumonia Acute on chronic diastolic failure,poss. Medical records show diastolic CHF on last admission may consult cardiology Obtain Echo Give lasix bid Chest x ray may have pulm edema Diabetes mellitus type 2. Fingerstick qac and hs humulin 70/30 bid Hypertension. BP stable Hyperlipidemia. Dementia. supportive care Coronary artery disease HIV infection. Continue HAART Full code status History Interval history: Less shortness of breath, Coughing No fever Hospitalist Physical - Physical exam Narrative exam: Gen : Not in acute distress, lying in bed HEENT:Normocephalic, atraumatic Neck: supple, No JVD Lungs: Bilateral crackles, bilat rhonchi, Heart :S1 and S2 reg, no murmurs, rubs or gallop Abd:soft, non tender, non distended, normal bowel sounds Ext: No edema, no clubbing, no cyanosis Neuro: Awake,alert,oriented x 3, no focal signs Psych: Normal mood - Constitutional Vitals: Temp Pulse Resp BP Pulse Ox 97.9 F 88 22 136/79 95 12/05/17 08:38 12/05/17 08:38 12/05/17 08:38 12/05/17 10:58 12/05/17 08:38 Results - Labs CBC & Chem 7: 12/05/17 07:15 12/06/17 14:49 Labs: Laboratory Last Values WBC 6.1 K/mm3 (4.5-11.0) 12/05/17 07:15 RBC 3.66 M/mm3 (3.65-5.03) 12/05/17 07:15 Hgb 10.0 gm/dl (10.1-14.3) L 12/05/17 07:15 Hct 31.8 % (30.3-42.9) 12/05/17 07:15 MCV 87 fl (79-97) 12/05/17 07:15 MCH 27 pg (28-32) L 12/05/17 07:15 MCHC 32 % (30-34) 12/05/17 07:15 RDW 16.4 % (13.2-15.2) H 12/05/17 07:15 Plt Count 197 K/mm3 (140-440) 12/05/17 07:15 Lymph % (Auto) 18.6 % (13.4-35.0) 12/05/17 07:15 Park % (Auto) 9.5 % (0.0-7.3) H 12/05/17 07:15 Eos % (Auto) 4.4 % (0.0-4.3) H 12/05/17 07:15 Baso % (Auto) 1.4 % (0.0-1.8) 12/05/17 07:15 Lymph # 1.1 K/mm3 (1.2-5.4) L 12/05/17 07:15 [place] # 0.6 K/mm3 (0.0-0.8) 12/05/17 07:15 Eos # 0.3 K/mm3 (0.0-0.4) 12/05/17 07:15 Baso # 0.1 K/mm3 (0.0-0.1) 12/05/17 07:15 Add Manual Diff Complete 12/04/17 20:42 Seg Neutrophils % 66.1 % (40.0-70.0) 12/05/17 07:15 Seg Neutrophils # 4.1 K/mm3 (1.8-7.7) 12/05/17 07:15 Sodium 143 mmol/L (137-145) 12/05/17 07:15 Potassium 4.0 mmol/L (3.6-5.0) 12/05/17 07:15 Chloride 110.1 mmol/L (98-107) H 12/05/17 07:15 Carbon Dioxide 19 mmol/L (22-30) L 12/05/17 07:15 Anion Gap 18 mmol/L 12/05/17 07:15 BUN 12 mg/dL (7-17) 12/05/17 07:15 Creatinine 0.9 mg/dL (0.7-1.2) 12/05/17 07:15 Estimated GFR > 60 ml/min 12/05/17 07:15 BUN/Creatinine Ratio 13 % 12/05/17 07:15 Glucose 120 mg/dL (65-100) H 12/05/17 07:15 POC Glucose 143 (70-105) H 12/05/17 11:22 Lactic Acid 1.60 mmol/L (0.7-2.0) 12/04/17 20:42 Calcium 8.3 mg/dL (8.4-10.2) L 12/05/17 07:15 Total Bilirubin < 0.20 mg/dL (0.1-1.2) 12/04/17 20:42 AST 22 units/L (5-40) 12/04/17 20:42 ALT 14 units/L (7-56) 12/04/17 20:42 Alkaline Phosphatase 169 units/L (35-129) H 12/04/17 20:42 Troponin T < 0.010 ng/mL (0.00-0.029) 12/04/17 20:42 Total Protein 7.8 g/dL (6.3-8.2) 12/04/17 20:42 Albumin 4.1 g/dL (3.9-5) 12/04/17 20:42 Albumin/Globulin Ratio 1.1 % 12/04/17 20:42
[2017-12-05] MEDS ORDERED: INSULIN ASPART PROTAMINE SC SCH (18:00)
[2017-12-05] MEDS ORDERED: [UNRECOGNIZED DRUG - OTHER] SC SCH (18:00)
[2017-12-05] MEDS: LASIX IV SCH (18:18)
[2017-12-06] MEDS: DUONEB *Not for PRN Use IH SCH ×4 (01:19→20:44)
[2017-12-06] MEDS: LASIX IV SCH ×2 (06:33→18:37)
[2017-12-06] MEDS: HumaLOG SUB-Q SCH ×4 (07:37→21:42)
[2017-12-06] MEDS: LEVAQUIN 750MG/150ML 750 MG/150 ML BAG IV SCH (11:05)
[2017-12-06] MEDS: NEURONTIN PO SCH ×2 (11:06→22:33)
[2017-12-06] MEDS: PLAVIX PO SCH (11:06)
[2017-12-06] MEDS: NORVASC PO SCH (11:07)
[2017-12-06] MEDS: SUSTIVA PO SCH ×2 (11:10→22:34)
[2017-12-06] MEDS: VIREAD PO SCH ×2 (11:10→22:35)
[2017-12-06] MEDS: EMTRIVA PO SCH ×2 (11:11→22:33)
[2017-12-06] MEDS: SODIUM CHLORIDE FLUSH SYRINGE 10 ML IV SCH ×2 (11:11→22:35)
--- NOTE | 2017-12-06 12:58 | Consultation ---
History of Present Illness Consult date: 12/06/17 Reason for consult: pneumonia History of present illness: Called to see case of a 76-year-old -[place] female, with prior history of HIV, who presented to the hospital with breathing problems, increased cough, expectoration and low-grade fever. Patient family reports that she presents with increased cough, yellow expectoration in small amounts associated with increased shortness of breath. Symptoms noted 2-3 days prior to admission. Low -grade fever reported. No night sweats no hemoptysis. At the ED, she reported history of HIV with undetectable bacterial pounds, per self-reported. Also prior cardiac history of multiple stents and bioprosthetic valve. Denies heart failure. Denies lower extremity swelling. Does report snoring and history of poor sleep on further review. He is on inhaler for asthma with multiple episodes of bronchitis and asthma in the past. Claims not to be smoking Past History Past Medical History: HIV/AIDS, other (asthma, bronchitis episodes) Past Surgical History: valve replacement, CABG Medications and Allergies Allergies Allergy/AdvReac Type Severity Reaction Status Date / Time Penicillins Allergy Unknown Verified 02/27/17 09:06 Home Medications Medication Instructions Recorded Confirmed Last Taken Type Insulin Aspart Prot/Aspart(Nf) 16 units SQ QAM #1 vial 02/27/17 03/11/17 Unknown Rx [NovoLOG Mix 70/30 VIAL] Clopidogrel Bisulfate [Plavix] 75 mg PO QDAY 03/03/17 03/11/17 Unknown History Efavirenz/Emtricitab/Tenofovir 1 tab PO QDAY 03/03/17 03/11/17 Unknown History [Atripla Tablet] Gabapentin [Neurontin] 300 mg PO BID 03/03/17 03/11/17 Unknown History Insulin Aspart Prot/Aspart(Nf) 8 units SC QPM 03/03/17 03/11/17 Unknown History [NovoLOG Mix 70/30 VIAL] Ciprofloxacin HCl [Ciprofloxacin 500 mg PO Q12HR #6 tab 03/05/17 03/11/17 Unknown Rx TAB] amLODIPine [Norvasc] 5 mg PO QDAY #30 tablet 03/05/17 03/11/17 Unknown Rx Levofloxacin [Levaquin] 750 mg PO QDAY #8 tablet 03/12/17 Unknown Rx Active Meds: Active Medications Acetaminophen (Tylenol) 650 mg PO Q4H PRN PRN Reason: Pain MILD(1-3)/Fever >100.5/CONTRERAS Last Admin: 12/05/17 18:14 Dose: 650 mg Albuterol/Ipratropium (Duoneb *Not For Prn Use*) 1 ampul IH Q6HRT [facility] Last Admin: 12/06/17 08:27 Dose: 1 ampul Amlodipine Besylate (Norvasc) 5 mg PO QDAY [facility] Last Admin: 12/06/17 11:07 Dose: 5 mg Clopidogrel Bisulfate (Plavix) 75 mg PO QDAY [facility] Last Admin: 12/06/17 11:06 Dose: 75 mg Dextrose (D50w (25gm) Syringe) 50 ml IV PRN PRN PRN Reason: Hypoglycemia Efavirenz (Sustiva) 600 mg PO QHS [facility] Emtricitabine (Emtriva) 200 mg PO QHS [facility] Furosemide (Lasix) 40 mg IV 0600,1800 [facility] Last Admin: 12/06/17 06:33 Dose: 40 mg Gabapentin (Neurontin) 300 mg PO BID [facility] Last Admin: 12/06/17 11:06 Dose: 300 mg Hydralazine HCl (Apresoline) 5 mg IV Q6HR PRN PRN Reason: Hypertension Levofloxacin/Dextrose (Levaquin 750mg/150ml) 750 mg in 150 mls @ 100 mls/hr IV Q24HR [facility]; Protocol Last Admin: 12/06/17 11:05 Dose: 100 mls/hr Insulin Human Isoph/Insulin Regular (Humulin 70/30) 8 unit SUB-Q QPMDIAB [facility] Last Admin: 12/05/17 18:15 Dose: 8 unit Insulin Human Isoph/Insulin Regular (Humulin 70/30) 16 unit SUB-Q QAMDIAB [facility] Last Admin: 12/06/17 10:00 Dose: Not Given Insulin Human Lispro (Humalog) 0 unit SUB-Q ACHS [facility]; Protocol Last Admin: 12/06/17 07:37 Dose: Not Given Ondansetron HCl (Zofran) 4 mg IV Q8H PRN PRN Reason: Nausea And Vomiting Oxycodone/Acetaminophen (Percocet 5/325) 1 tab PO Q6H PRN PRN Reason: Pain, Moderate (4-6) Last Admin: 12/05/17 00:49 Dose: 1 tab Sodium Chloride (Sodium Chloride Flush Syringe 10 Ml) 10 ml IV BID [facility] Last Admin: 12/06/17 11:11 Dose: 10 ml Sodium Chloride (Sodium Chloride Flush Syringe 10 Ml) 10 ml IV PRN PRN PRN Reason: LINE FLUSH Tenofovir Disoproxil Fumarate (Viread) 300 mg PO QHS [facility] Review of Systems Constitutional: no weight loss, no weight gain Ears, nose, mouth and throat: no nasal discharge, no sinus pressure Cardiovascular: no chest pain, no orthopnea, no palpitations, no rapid/ irregular heart beat, no edema Respiratory: cough with sputum, wheezing, no hemoptysis Gastrointestinal: no abdominal pain, no nausea, no diarrhea Rectal: no pain Physical Examination Vital signs: Vital Signs Pulse Resp 96 H 28 H 12/04/17 19:32 12/04/17 19:32 General appearance: no acute distress, other (obese) Eyes: non-icteric ENT: oropharynx moist, other (Mallampati 4) Neck: supple, no JVD Ascultation: Bilateral: wheezes, rhonchi (mild) Cardiovascular: regular rate and rhythm Gastrointestinal: normoactive bowel sounds, non-distended Integumentary: normal Extremities: no cyanosis, no edema, no ischemia or petechiae Results - Laboratory Findings CBC and BMP: 12/05/17 07:15 12/05/17 07:15 Abnormal lab findings: Abnormal Labs 12/04/17 12/04/17 12/05/17 20:42 20:42 00:26 Hgb MCH RDW 16.5 H Lymph % (Auto) 10.6 L [place] % (Auto) 8.9 H Eos % (Auto) Lymph # 0.8 L Seg Neutrophils % 76.5 H Chloride Carbon Dioxide 18 L Glucose 164 H POC Glucose 165 H Calcium Alkaline Phosphatase 169 H NT-Pro-B Natriuret Pep 12/05/17 12/05/17 12/05/17 05:13 07:15 07:15 Hgb 10.0 L MCH 27 L RDW 16.4 H Lymph % (Auto) [place] % (Auto) 9.5 H Eos % (Auto) 4.4 H Lymph # 1.1 L Seg Neutrophils % Chloride 110.1 H Carbon Dioxide 19 L Glucose 120 H POC Glucose 137 H Calcium 8.3 L Alkaline Phosphatase NT-Pro-B Natriuret Pep 06/12/05/17 12/05/17 11:22 13:51 15:42 Hgb MCH RDW Lymph % (Auto) [place] % (Auto) Eos % (Auto) Lymph # Seg Neutrophils % Chloride Carbon Dioxide Glucose POC Glucose 143 H 171 H Calcium Alkaline Phosphatase NT-Pro-B Natriuret Pep 1167 H 12/05/17 12/06/17 12/06/17 21:10 01:30 01:51 Hgb MCH RDW Lymph % (Auto) [place] % (Auto) Eos % (Auto) Lymph # Seg Neutrophils % Chloride Carbon Dioxide Glucose POC Glucose 188 H < 40 L 62 L Calcium Alkaline Phosphatase NT-Pro-B Natriuret Pep 12/06/17 05:41 Hgb MCH RDW Lymph % (Auto) [place] % (Auto) Eos % (Auto) Lymph # Seg Neutrophils % Chloride Carbon Dioxide Glucose POC Glucose 242 H Calcium Alkaline Phosphatase NT-Pro-B Natriuret Pep - Diagnostic Findings Chest x-ray: report reviewed, image reviewed Assessment and Plan Acute Bronchitis versus pneumonia Congestive heart failure. Unknown status, elevated BNP and echo be secondary to diastolic dysfunction versus pulmonary hypertension. EF 60-65% Pulmonary hypertension. See echocardiogram report, 39 mmHg. HIV. Reportedly on treatment and controlled Obstructive sleep apnea. May account for pulmonary hypertension changes at this level Obesity Recommendations Complete 5-7 days of levofloxacin Albuterol 2.5 milligram nebulizations every 4-6 hours with or without ipratropium Solu-Medrol 40-60 mg IV every 6-8 hours Consider gentle diuresis Oxygen support via nasal cannula or mask to maintain oximetry over 92% Ambulate on room air prior to discharge to monitor for evidence of exercise hypoxemia DVT prophylaxis Outpatient sleep study evaluation and treatment with CPAP if clinically indicated Discussed with patient in detail. All questions answered. Thanks
[2017-12-06 15:48] LABS: BUN/Creatinine Ratio 12; Blood Urea Nitrogen 12 mg/dL (7-17); Calcium 9.1 mg/dL (8.4-10.2); Hemolysis Index 1
[2017-12-06 16:05] LABS: Bacteria,Urine 4+ /HPF (Negative); Bilirubin,Urine NEG (Negative); Blood,Urine SM (Negative); Color,Urine Yellow (Yellow); Mucus,Urine 1+ /HPF; Protein,Urine <15 mg/dL mg/dL (Negative); Urobilinogen,Urine < 2.0 mg/dL (<2.0)
[2017-12-07] MEDS: HEPARIN SUB-Q SCH ×4 (02:06→22:20)
[2017-12-07] MEDS: DUONEB *Not for PRN Use IH SCH ×4 (02:07→20:20)
[2017-12-07] MEDS: PERCOCET 5/325 PO PRN ×2 (05:24→22:17)
[2017-12-07] MEDS: LASIX IV SCH ×2 (05:24→18:01)
--- NOTE | 2017-12-07 07:49 | Progress Note ---
Assessment and Plan Assessment and plan: Pneumonia. Bilateral infiltrates on CXR. Pneumonia versus pulm edema. continue Levaquin iv for pneumonia Acute on chronic diastolic failure,poss. Medical records show diastolic CHF on last admission Will consult cardiology Obtain Echo Give lasix bid Chest x ray may have pulm edema Pulmonary hypertension. Obstructive sleep apnea. Pulm following. Diabetes mellitus type 2. Fingerstick qac and hs humulin 70/30 bid Hypertension. BP stable UTI. On Antibiotics Hyperlipidemia. Dementia. supportive care Coronary artery disease HIV infection. Continue HAART Full code status History Interval history: Less shortness of breath, Coughing No fever pain on urination Hospitalist Physical - Physical exam Narrative exam: Gen : Not in acute distress, lying in bed,obese HEENT:Normocephalic, atraumatic Neck: supple, No JVD Lungs: Bilateral crackles, bilat rhonchi, Heart :S1 and S2 reg, no murmurs, rubs or gallop Abd:soft, non tender, non distended, normal bowel sounds Ext: No edema, no clubbing, no cyanosis Neuro: Awake,alert,oriented x 3, no focal signs Psych: Normal mood - Constitutional Vitals: Temp Pulse Resp BP Pulse Ox 97.8 F 97 H 19 93/58 100 12/07/17 07:27 12/06/17 21:18 12/07/17 07:27 12/07/17 07:27 12/07/17 07:27 Results - Labs CBC & Chem 7: 12/05/17 07:15 12/06/17 14:49 Labs: Laboratory Last Values WBC 6.1 K/mm3 (4.5-11.0) 12/05/17 07:15 RBC 3.66 M/mm3 (3.65-5.03) 12/05/17 07:15 Hgb 10.0 gm/dl (10.1-14.3) L 12/05/17 07:15 Hct 31.8 % (30.3-42.9) 12/05/17 07:15 MCV 87 fl (79-97) 12/05/17 07:15 MCH 27 pg (28-32) L 12/05/17 07:15 MCHC 32 % (30-34) 12/05/17 07:15 RDW 16.4 % (13.2-15.2) H 12/05/17 07:15 Plt Count 197 K/mm3 (140-440) 12/05/17 07:15 Lymph % (Auto) 18.6 % (13.4-35.0) 12/05/17 07:15 [place] % (Auto) 9.5 % (0.0-7.3) H 12/05/17 07:15 Eos % (Auto) 4.4 % (0.0-4.3) H 12/05/17 07:15 Baso % (Auto) 1.4 % (0.0-1.8) 12/05/17 07:15 Lymph # 1.1 K/mm3 (1.2-5.4) L 12/05/17 07:15 [place] # 0.6 K/mm3 (0.0-0.8) 12/05/17 07:15 Eos # 0.3 K/mm3 (0.0-0.4) 12/05/17 07:15 Baso # 0.1 K/mm3 (0.0-0.1) 12/05/17 07:15 Add Manual Diff Complete 12/04/17 20:42 Seg Neutrophils % 66.1 % (40.0-70.0) 12/05/17 07:15 Seg Neutrophils # 4.1 K/mm3 (1.8-7.7) 12/05/17 07:15 Sodium 141 mmol/L (137-145) 12/06/17 14:49 Potassium 4.1 mmol/L (3.6-5.0) 12/06/17 14:49 Chloride 104.8 mmol/L (98-107) 12/06/17 14:49 Carbon Dioxide 25 mmol/L (22-30) 12/06/17 14:49 Anion Gap 15 mmol/L 12/06/17 14:49 BUN 12 mg/dL (7-17) 12/06/17 14:49 Creatinine 1.0 mg/dL (0.7-1.2) 12/06/17 14:49 Estimated GFR > 60 ml/min 12/06/17 14:49 BUN/Creatinine Ratio 12 % 12/06/17 14:49 Glucose 179 mg/dL (65-100) H 12/06/17 14:49 POC Glucose 130 (70-105) H 12/07/17 05:20 Lactic Acid 1.60 mmol/L (0.7-2.0) 12/04/17 20:42 Calcium 9.1 mg/dL (8.4-10.2) 12/06/17 14:49 Total Bilirubin < 0.20 mg/dL (0.1-1.2) 12/04/17 20:42 AST 22 units/L (5-40) 12/04/17 20:42 ALT 14 units/L (7-56) 12/04/17 20:42 Alkaline Phosphatase 169 units/L (35-129) H 12/04/17 20:42 Troponin T < 0.010 ng/mL (0.00-0.029) 12/04/17 20:42 NT-Pro-B Natriuret Pep 1167 pg/mL (0-900) H 12/05/17 13:51 Total Protein 7.8 g/dL (6.3-8.2) 12/04/17 20:42 Albumin 4.1 g/dL (3.9-5) 12/04/17 20:42 Albumin/Globulin Ratio 1.1 % 12/04/17 20:42 Urine Color Yellow (Yellow) 12/06/17 14:08 Urine Turbidity Clear (Clear) 12/06/17 14:08 Urine pH 6.0 (5.0-7.0) 12/06/17 14:08 Ur Specific [place] 1.010 (1.003-1.030) 12/06/17 14:08 Urine Protein <15 mg/dl mg/dL (Negative) 12/06/17 14:08 Urine Glucose (UA) 50 mg/dL (Negative) 12/06/17 14:08 Urine Ketones Neg mg/dL (Negative) 12/06/17 14:08 Urine Blood Sm (Negative) 12/06/17 14:08 Urine Nitrite Pos (Negative) 12/06/17 14:08 Urine Bilirubin Neg (Negative) 12/06/17 14:08 Urine Urobilinogen < 2.0 mg/dL (<2.0) 12/06/17 14:08 Ur Leukocyte Esterase Lg (Negative) 12/06/17 14:08 Urine WBC (Auto) 77.0 /HPF (0.0-6.0) H 12/06/17 14:08 Urine RBC (Auto) 6.0 /HPF (0.0-6.0) 12/06/17 14:08 U Epithel Cells (Auto) 2.0 /HPF (0-13.0) 12/06/17 14:08 Urine Bacteria (Auto) 4+ /HPF (Negative) 12/06/17 14:08 Urine Mucus 1+ /HPF 12/06/17 14:08
[2017-12-07] MEDS: NEURONTIN PO SCH ×2 (09:59→22:16)
[2017-12-07] MEDS: LEVAQUIN 750MG/150ML 750 MG/150 ML BAG IV SCH (10:00)
[2017-12-07] MEDS: NORVASC PO SCH (10:00)
[2017-12-07] MEDS: PLAVIX PO SCH (10:00)
[2017-12-07] MEDS: SODIUM CHLORIDE FLUSH SYRINGE 10 ML IV SCH ×2 (10:03→22:20)
[2017-12-07] MEDS: HumaLOG SUB-Q SCH ×4 (10:08→22:20)
--- NOTE | 2017-12-07 10:31 | Consultation ---
History of Present Illness Consult date: 12/07/17 Consult reason: congestive heart failure History of present illness: This is a 76yr old woman with a history of reactive airway disease, Hypertension , HIV and IDDM. She has a history coronary artery disease which is followed by [facility] cardiology. Just a year ago she underwent a cardiac cath that reports a patent LCx and LAD stent with a preserved ejection fraction. She presented to this hospital with complaints of shortness of breath, coughs, congestion, chest pain and mild wheezing. A cardiac consultation was requested for CHF evaluation. A chest xray reports pneumonitis, no evidence of CHF. There is no lower extremity edema. Further cardiac evaluation with an echocardiogram demonstrates a well preserved ejection fraction. Past History Past Medical History: CAD, diabetes, HIV/AIDS, hypertension Medications and Allergies Allergies Allergy/AdvReac Type Severity Reaction Status Date / Time Penicillins Allergy Unknown Verified 02/27/17 09:06 Home Medications Medication Instructions Recorded Confirmed Last Taken Type Insulin Aspart Prot/Aspart(Nf) 16 units SQ QAM #1 vial 02/27/17 12/06/17 Rx [NovoLOG Mix 70/30 VIAL] Clopidogrel Bisulfate [Plavix] 75 mg PO QDAY 03/03/17 12/06/17 12/02/17 History Efavirenz/Emtricitab/Tenofovir 1 tab PO QDAY 03/03/17 12/06/17 12/02/17 History [Atripla Tablet] Gabapentin [Neurontin] 300 mg PO BID 03/03/17 12/06/17 12/02/17 History Insulin Aspart Prot/Aspart(Nf) 8 units SC QPM 03/03/17 12/06/17 12/02/17 History [NovoLOG Mix 70/30 VIAL] Ciprofloxacin HCl [Ciprofloxacin 500 mg PO Q12HR #6 tab 03/05/17 12/06/17 Rx TAB] amLODIPine [Norvasc] 5 mg PO QDAY #30 tablet 03/05/17 12/06/17 12/02/17 Rx Levofloxacin [Levaquin] 750 mg PO QDAY #8 tablet 03/12/17 12/06/17 12/02/17 Rx Active Meds: Active Medications Acetaminophen (Tylenol) 650 mg PO Q4H PRN PRN Reason: Pain MILD(1-3)/Fever >100.5/CONTRERAS Last Admin: 12/05/17 18:14 Dose: 650 mg Albuterol/Ipratropium (Duoneb *Not For Prn Use*) 1 ampul IH Q6HRT [facility] Last Admin: 12/07/17 09:35 Dose: 1 ampul Amlodipine Besylate (Norvasc) 5 mg PO QDAY [facility] Last Admin: 12/07/17 10:00 Dose: 5 mg Clopidogrel Bisulfate (Plavix) 75 mg PO QDAY [facility] Last Admin: 12/07/17 10:00 Dose: 75 mg Dextrose (D50w (25gm) Syringe) 50 ml IV PRN PRN PRN Reason: Hypoglycemia Efavirenz (Sustiva) 600 mg PO QHS [facility] Last Admin: 12/06/17 22:34 Dose: 600 mg Emtricitabine (Emtriva) 200 mg PO QHS [facility] Last Admin: 12/06/17 22:33 Dose: 200 mg Furosemide (Lasix) 40 mg IV 0600,1800 [facility] Last Admin: 12/07/17 05:24 Dose: 40 mg Gabapentin (Neurontin) 300 mg PO BID [facility] Last Admin: 12/07/17 09:59 Dose: 300 mg Heparin Sodium (Porcine) (Heparin) 5,000 unit SUB-Q Q8HR [facility] Last Admin: 12/07/17 05:34 Dose: 5,000 unit Hydralazine HCl (Apresoline) 5 mg IV Q6HR PRN PRN Reason: Hypertension Levofloxacin/Dextrose (Levaquin 750mg/150ml) 750 mg in 150 mls @ 100 mls/hr IV Q24HR [facility]; Protocol Last Admin: 12/07/17 10:00 Dose: 100 mls/hr Insulin Human Isoph/Insulin Regular (Humulin 70/30) 8 unit SUB-Q QPMDIAB [facility] Last Admin: 12/06/17 18:36 Dose: 8 unit Insulin Human Isoph/Insulin Regular (Humulin 70/30) 16 unit SUB-Q QAMDIAB [facility] Last Admin: 12/06/17 10:00 Dose: Not Given Insulin Human Lispro (Humalog) 0 unit SUB-Q ACHS [facility]; Protocol Last Admin: 12/07/17 10:08 Dose: Not Given Ondansetron HCl (Zofran) 4 mg IV Q8H PRN PRN Reason: Nausea And Vomiting Oxycodone/Acetaminophen (Percocet 5/325) 1 tab PO Q6H PRN PRN Reason: Pain, Moderate (4-6) Last Admin: 12/07/17 05:24 Dose: 1 tab Sodium Chloride (Sodium Chloride Flush Syringe 10 Ml) 10 ml IV BID [facility] Last Admin: 12/07/17 10:03 Dose: 10 ml Sodium Chloride (Sodium Chloride Flush Syringe 10 Ml) 10 ml IV PRN PRN PRN Reason: LINE FLUSH Tenofovir Disoproxil Fumarate (Viread) 300 mg PO QHS [facility] Last Admin: 12/06/17 22:35 Dose: 300 mg Physical Examination Vital Signs Pulse Resp 96 H 28 H 12/04/17 19:32 12/04/17 19:32 General appearance: no acute distress HEENT: Positive: PERRL Cardiac: Positive: Reg Rate and Rhythm Lungs: Positive: Wheezes Neuro: Positive: Grossly Intact Extremities: Absent: edema Results 12/05/17 07:15 12/06/17 14:49 Comprehensive Metabolic Panel 12/06/17 Range/Units 14:49 Sodium 141 (137-145) mmol/L Potassium 4.1 (3.6-5.0) mmol/L Chloride 104.8 (98-107) mmol/L Carbon Dioxide 25 (22-30) mmol/L BUN 12 (7-17) mg/dL Creatinine 1.0 (0.7-1.2) mg/dL Glucose 179 H (65-100) mg/dL Calcium 9.1 (8.4-10.2) mg/dL Assessment and Plan Bronchitis vs pneumonia Hx of COPD/Asthma Hypertension IDDM HIV Hx of CAD [facility] 08/2016 at [place] reports a patent LCx and LAD stent with a preserved ejection fraction. normal LVEF by echo this admission.
--- NOTE | 2017-12-07 12:33 | Progress Note ---
Assessment and Plan Assessment and plan: Pneumonia. continue Levaquin iv for pneumonia Acute bronchitis Pulmonary hypertension. Obstructive sleep apnea. Pulm following. Diabetes mellitus type 2. Fingerstick qac and hs humulin 70/30 bid Hypertension. BP stable UTI. On Antibiotics Hyperlipidemia. Dementia. supportive care Coronary artery disease HIV infection. Continue HAART Full code status She was evaluated by cardiology and CHF ruled out. History Interval history: Less shortness of breath, Coughing No fever pain on urination Hospitalist Physical - Physical exam Narrative exam: Gen : Not in acute distress, lying in bed,obese HEENT:Normocephalic, atraumatic Neck: supple, No JVD Lungs: Bilateral crackles, bilat rhonchi, Heart :S1 and S2 reg, no murmurs, rubs or gallop Abd:soft, non tender, non distended, normal bowel sounds Ext: No edema, no clubbing, no cyanosis Neuro: Awake,alert,oriented x 3, no focal signs Psych: Normal mood - Constitutional Vitals: Temp Pulse Resp BP Pulse Ox 97.8 F 82 22 93/58 100 12/07/17 07:27 12/07/17 10:00 12/07/17 10:00 12/07/17 07:27 12/07/17 07:27 General appearance: Present: no acute distress Results - Labs CBC & Chem 7: 12/05/17 07:15 12/06/17 14:49 Labs: Laboratory Last Values WBC 6.1 K/mm3 (4.5-11.0) 12/05/17 07:15 RBC 3.66 M/mm3 (3.65-5.03) 12/05/17 07:15 Hgb 10.0 gm/dl (10.1-14.3) L 12/05/17 07:15 Hct 31.8 % (30.3-42.9) 12/05/17 07:15 MCV 87 fl (79-97) 12/05/17 07:15 MCH 27 pg (28-32) L 12/05/17 07:15 MCHC 32 % (30-34) 12/05/17 07:15 RDW 16.4 % (13.2-15.2) H 12/05/17 07:15 Plt Count 197 K/mm3 (140-440) 12/05/17 07:15 Lymph % (Auto) 18.6 % (13.4-35.0) 12/05/17 07:15 [place] % (Auto) 9.5 % (0.0-7.3) H 12/05/17 07:15 Eos % (Auto) 4.4 % (0.0-4.3) H 12/05/17 07:15 Baso % (Auto) 1.4 % (0.0-1.8) 12/05/17 07:15 Lymph # 1.1 K/mm3 (1.2-5.4) L 12/05/17 07:15 [place] # 0.6 K/mm3 (0.0-0.8) 12/05/17 07:15 Eos # 0.3 K/mm3 (0.0-0.4) 12/05/17 07:15 Baso # 0.1 K/mm3 (0.0-0.1) 12/05/17 07:15 Add Manual Diff Complete 12/04/17 20:42 Seg Neutrophils % 66.1 % (40.0-70.0) 12/05/17 07:15 Seg Neutrophils # 4.1 K/mm3 (1.8-7.7) 12/05/17 07:15 Sodium 141 mmol/L (137-145) 12/06/17 14:49 Potassium 4.1 mmol/L (3.6-5.0) 12/06/17 14:49 Chloride 104.8 mmol/L (98-107) 12/06/17 14:49 Carbon Dioxide 25 mmol/L (22-30) 12/06/17 14:49 Anion Gap 15 mmol/L 12/06/17 14:49 BUN 12 mg/dL (7-17) 12/06/17 14:49 Creatinine 1.0 mg/dL (0.7-1.2) 12/06/17 14:49 Estimated GFR > 60 ml/min 12/06/17 14:49 BUN/Creatinine Ratio 12 % 12/06/17 14:49 Glucose 179 mg/dL (65-100) H 12/06/17 14:49 POC Glucose 397 (70-105) H 12/07/17 11:44 Lactic Acid 1.60 mmol/L (0.7-2.0) 12/04/17 20:42 Calcium 9.1 mg/dL (8.4-10.2) 12/06/17 14:49 Total Bilirubin < 0.20 mg/dL (0.1-1.2) 12/04/17 20:42 AST 22 units/L (5-40) 12/04/17 20:42 ALT 14 units/L (7-56) 12/04/17 20:42 Alkaline Phosphatase 169 units/L (35-129) H 12/04/17 20:42 Troponin T < 0.010 ng/mL (0.00-0.029) 12/04/17 20:42 NT-Pro-B Natriuret Pep 1167 pg/mL (0-900) H 12/05/17 13:51 Total Protein 7.8 g/dL (6.3-8.2) 12/04/17 20:42 Albumin 4.1 g/dL (3.9-5) 12/04/17 20:42 Albumin/Globulin Ratio 1.1 % 12/04/17 20:42 Urine Color Yellow (Yellow) 12/06/17 14:08 Urine Turbidity Clear (Clear) 12/06/17 14:08 Urine pH 6.0 (5.0-7.0) 12/06/17 14:08 Ur Specific [place] 1.010 (1.003-1.030) 12/06/17 14:08 Urine Protein <15 mg/dl mg/dL (Negative) 12/06/17 14:08 Urine Glucose (UA) 50 mg/dL (Negative) 12/06/17 14:08 Urine Ketones Neg mg/dL (Negative) 12/06/17 14:08 Urine Blood Sm (Negative) 12/06/17 14:08 Urine Nitrite Pos (Negative) 12/06/17 14:08 Urine Bilirubin Neg (Negative) 12/06/17 14:08 Urine Urobilinogen < 2.0 mg/dL (<2.0) 12/06/17 14:08 Ur Leukocyte Esterase Lg (Negative) 12/06/17 14:08 Urine WBC (Auto) 77.0 /HPF (0.0-6.0) H 12/06/17 14:08 Urine RBC (Auto) 6.0 /HPF (0.0-6.0) 12/06/17 14:08 U Epithel Cells (Auto) 2.0 /HPF (0-13.0) 12/06/17 14:08 Urine Bacteria (Auto) 4+ /HPF (Negative) 12/06/17 14:08 Urine Mucus 1+ /HPF 12/06/17 14:08
--- NOTE | 2017-12-07 12:57 | Progress Note ---
Assessment and Plan Acute Bronchitis versus pneumonia. Clinically improving Congestive heart failure. Unknown status, elevated BNP and echo be secondary to diastolic dysfunction versus pulmonary hypertension. EF 60-65%. See also cardiology comments Pulmonary hypertension. See echocardiogram report, 39 mmHg. HIV. Reportedly on treatment and controlled. No additional findings at this time Obstructive sleep apnea. May account for pulmonary hypertension changes at this level Obesity Recommendations Complete 5-7 days of levofloxacin Albuterol 2.5 milligram nebulizations every 4-6 hours with or without ipratropium Solu-Medrol 40-60 mg IV every 6-8 hours Consider gentle diuresis Oxygen support via nasal cannula or mask to maintain oximetry over 92% Ambulate on room air prior to discharge to monitor for evidence of exercise hypoxemia DVT prophylaxis Outpatient sleep study evaluation and treatment with CPAP if clinically indicated Discussed with patient and IMS, Dr. Brooke in detail. All questions answered. Subjective Date of service: 12/07/17 Interval history: Reports some cough and expectoration. Breathing is better today. Objective Vital Signs - 12hr 12/07/17 12/07/17 12/07/17 07:27 09:20 09:39 Temperature 97.8 F Pulse Rate Pulse Rate [ 88 82 Bilateral Throughout] Respiratory 19 Rate Respiratory 20 18 Rate [Bilateral Throughout] Blood Pressure 93/58 O2 Sat by Pulse 100 Oximetry 12/07/17 10:00 Temperature Pulse Rate 82 Pulse Rate [ Bilateral Throughout] Respiratory 22 Rate Respiratory Rate [Bilateral Throughout] Blood Pressure O2 Sat by Pulse Oximetry Constitutional: no acute distress, other (obese) Eyes: non-icteric ENT: oropharynx moist, other (Mallampati 4) Neck: supple, no JVD Ascultation: Bilateral: clear, rhonchi (mild) Cardiovascular: regular rate and rhythm Gastrointestinal: normoactive bowel sounds, non-distended Integumentary: normal Extremities: no cyanosis, no edema, no ischemia or petechiae CBC and BMP: 12/05/17 07:15 12/06/17 14:49 Abnormal lab findings: Abnormal Labs 12/04/17 12/04/17 12/05/17 20:42 20:42 00:26 Hgb MCH RDW 16.5 H Lymph % (Auto) 10.6 L [place] % (Auto) 8.9 H Eos % (Auto) Lymph # 0.8 L Seg Neutrophils % 76.5 H Chloride Carbon Dioxide 18 L Glucose 164 H POC Glucose 165 H Calcium Alkaline Phosphatase 169 H NT-Pro-B Natriuret Pep Urine WBC (Auto) 12/05/17 12/05/17 12/05/17 05:13 07:15 07:15 Hgb 10.0 L MCH 27 L RDW 16.4 H Lymph % (Auto) [place] % (Auto) 9.5 H Eos % (Auto) 4.4 H Lymph # 1.1 L Seg Neutrophils % Chloride 110.1 H Carbon Dioxide 19 L Glucose 120 H POC Glucose 137 H Calcium 8.3 L Alkaline Phosphatase NT-Pro-B Natriuret Pep Urine WBC (Auto) 12/05/17 12/05/17 12/05/17 11:22 13:51 15:42 Hgb MCH RDW Lymph % (Auto) [place] % (Auto) Eos % (Auto) Lymph # Seg Neutrophils % Chloride Carbon Dioxide Glucose POC Glucose 143 H 171 H Calcium Alkaline Phosphatase NT-Pro-B Natriuret Pep 1167 H Urine WBC (Auto) 12/05/17 12/06/17 12/06/17 21:10 01:30 01:51 Hgb MCH RDW Lymph % (Auto) [place] % (Auto) Eos % (Auto) Lymph # Seg Neutrophils % Chloride Carbon Dioxide Glucose POC Glucose 188 H < 40 L 62 L Calcium Alkaline Phosphatase NT-Pro-B Natriuret Pep Urine WBC (Auto) 12/06/17 12/06/17 12/06/17 05:41 12:28 14:08 Hgb MCH RDW Lymph % (Auto) [place] % (Auto) Eos % (Auto) Lymph # Seg Neutrophils % Chloride Carbon Dioxide Glucose POC Glucose 242 H 266 H Calcium Alkaline Phosphatase NT-Pro-B Natriuret Pep Urine WBC (Auto) 77.0 H 12/06/17 12/06/17 12/06/17 14:49 17:03 21:30 Hgb MCH RDW Lymph % (Auto) [place] % (Auto) Eos % (Auto) Lymph # Seg Neutrophils % Chloride Carbon Dioxide Glucose 179 H POC Glucose 385 H 65 L Calcium Alkaline Phosphatase NT-Pro-B Natriuret Pep Urine WBC (Auto) 12/07/17 12/07/17 05:20 11:44 Hgb MCH RDW Lymph % (Auto) [place] % (Auto) Eos % (Auto) Lymph # Seg Neutrophils % Chloride Carbon Dioxide Glucose POC Glucose 130 H 397 H Calcium Alkaline Phosphatase NT-Pro-B Natriuret Pep Urine WBC (Auto)
[2017-12-07] MEDS: SUSTIVA PO SCH (22:16)
[2017-12-07] MEDS: EMTRIVA PO SCH (22:18)
[2017-12-07] MEDS: VIREAD PO SCH (22:19)
[2017-12-08] MEDS: LASIX IV SCH (06:03)
[2017-12-08] MEDS: HEPARIN SUB-Q SCH (06:28)
[2017-12-08 07:54] LABS: Hematocrit 32.7 % (30.3-42.9); Hemoglobin 10.3 gm/dl (10.1-14.3); Mean Corpuscular HGB Conc 32 % (30-34); Mean Corpuscular Hemoglobin 27 pg (28-32); Mean Corpuscular Volume 87 fl (79-97); Platelet Count 235 K/mm3 (140-440); Red Blood Count 3.77 M/mm3 (3.65-5.03); Red Cell Distribution Width 16.1 % (13.2-15.2)
[2017-12-08 07:58] LABS: Calcium 9.2 mg/dL (8.4-10.2)
[2017-12-08 08:10] VITALS: BP 117/73
[2017-12-08] MEDS: DUONEB *Not for PRN Use IH SCH ×3 (08:28→15:52)
--- NOTE | 2017-12-08 08:50 | Discharge Summary ---
Providers - Providers Date of Admission: 12/04/17 22:56 Date of discharge: 12/08/17 Attending physician: JERAMIE MUNOZ 12/06/17 11:40 Consult to Physician [CONS] Routine Comment: Consulting Provider: NICOLETTE ESTRADA Physician Instructions: Reason For Exam: Pneumonia 12/06/17 17:28 Consult to Physician [CONS] Routine Comment: Consulting Provider: SANA GELLER Physician Instructions: Reason For Exam: CHF exacerbation Primary care physician: [facility] [employer] Hospitalization Reason for admission: sob Condition: Stable Hospital course: 76-year-old woman with multiple comorbidities including chronic asthma who presents to the hospital with 2 days of cough, wheezing and shortness of breath. The patient has a history of coronary artery disease, followed at [place]. A cardiac catheterization within the past year documented patent stents in the circumflex and LAD vessels, with no significant residual lesions. Left ventricular systolic function has been normal, including an echocardiogram done on this presentation which documents ejection fraction at 60-65%. It will be noted that on serial echocardiograms, she has calcification of the aortic valves with a small transaortic gradient, consistent with mild aortic stenosis. On the current echocardiogram, the mean transaortic gradient was 11 mmHg. The patient was admitted with diagnosis of acute hypoxemic respiratory failure. Cardiology consultation was requested for etiology possibly related to CHF. However, chest x-ray has a normal cardiac silhouette and no evidence of pulmonary edema or heart failure. The patient clinically had no lower extremity edema, and no orthopnea. Cardiology recommended continue medical therapy and no intervention. Pulmonary consultation was obtained and felt that the respiratory failure secondary to acute bronchitis versus pneumonia. Patient continued to clinically improve and recommendations for Levaquin for 7 days per pulmonary. Patient will receive a Medrol Dosepak taper at discharge. Patient should have outpatient sleep study evaluation and treatment with CPAP if clinically indicated. CM met with the pt. and her to inquire on their decision at discharge. They are not sure that they want to go to the [facility]. The is to go see it and see if that is what they want. Otherwise, if they so choose not to go, they have income and can get a motel room or return to the long-term. Case management will continue to work with discharge planning. Dedicated discharge time 32 minutes. Disposition: - TO HOME OR SELFCARE Time spent for discharge: 34 Core Measure Documentation - Palliative Care Palliative Care/ Comfort Measures: Not Applicable - Core Measures Any of the following diagnoses?: none Exam - Constitutional Vitals: Temp Pulse Resp BP Pulse Ox 98.2 F 64 19 117/73 96 12/08/17 07:52 12/08/17 07:52 12/08/17 07:52 12/08/17 07:52 12/08/17 08:29 General appearance: Present: no acute distress, well-nourished - EENT Eyes: Present: PERRL ENT: hearing intact, clear oral mucosa - Neck Neck: Present: supple, normal ROM - Respiratory Respiratory effort: normal Respiratory: bilateral: CTA - Cardiovascular Heart Sounds: Present: S1 & S2. Absent: rub, click - Extremities Extremities: pulses symmetrical, No edema Peripheral Pulses: within normal limits - Abdominal General gastrointestinal: Present: soft, non-tender, non-distended, normal bowel sounds Female genitourinary: Present: normal - Integumentary Integumentary: Present: clear, warm, dry - Musculoskeletal Musculoskeletal: gait normal, strength equal bilaterally - Psychiatric Psychiatric: appropriate mood/affect, intact judgment & insight - Neurologic Neurologic: CNII-XII intact, moves all extremities Plan Activity: no restrictions Weight Bearing Status: Full Weight Bearing Diet: regular Follow up with: PRIMARY CARE, [Primary Care Provider] - 3-5 Days ROGERS MARTINI MD [Staff Physician] - 7 Days SANA GELLER MD [Staff Physician] - 7 Days Prescriptions: amLODIPine [Norvasc] 5 mg PO QDAY #30 tablet Clopidogrel Bisulfate [Plavix] 75 mg PO QDAY #30 tablet Gabapentin [Neurontin] 300 mg PO BID #60 capsule Levofloxacin [Levaquin TAB] 750 mg PO QDAY #8 tablet methylPREDNISolone [Medrol] 4 mg PO QAM #1 tab.ds.pk oxyCODONE /ACETAMINOPHEN [Percocet 5/325 mg] 1 tab PO Q6H PRN #12 tablet PRN Reason: Pain, Moderate (4-6)
[2017-12-08] MEDS: LEVAQUIN 750MG/150ML 750 MG/150 ML BAG IV SCH (09:31)
[2017-12-08] MEDS: SODIUM CHLORIDE FLUSH SYRINGE 10 ML IV SCH (09:31)
[2017-12-08] MEDS: NEURONTIN PO SCH (10:00)
[2017-12-08] MEDS: PLAVIX PO SCH (10:00)
[2017-12-08] MEDS: NORVASC PO SCH (10:00)
--- NOTE | 2017-12-08 11:19 | Progress Note ---
Assessment and Plan Acute Bronchitis versus pneumonia. Clinically improving Congestive heart failure. Unknown status, elevated BNP and echo be secondary to diastolic dysfunction versus pulmonary hypertension. EF 60-65%. See also cardiology comments Pulmonary hypertension. See echocardiogram report, 39 mmHg. HIV. Reportedly on treatment and controlled. No additional findings at this time Obstructive sleep apnea. May account for pulmonary hypertension changes at this level Obesity Recommendations Complete ABX Albuterol 2.5 milligram nebulizations every 4-6 hours with or without ipratropium Chest PT Needs LAB/ICS/LTRE TX for asthma after DH Subjective Date of service: 12/08/17 Interval history: Some cough and expectoration. No changes Objective Vital Signs - 12hr 12/08/17 12/08/17 12/08/17 01:22 06:04 07:52 Temperature 98.2 F Pulse Rate 88 85 64 Pulse Rate [ Bilateral Throughout] Respiratory 19 Rate Respiratory Rate [Bilateral Throughout] Blood Pressure 117/73 Blood Pressure 95/65 106/59 [Right] O2 Sat by Pulse 82 L Oximetry 12/08/17 12/08/17 12/08/17 08:28 08:29 09:01 Temperature Pulse Rate Pulse Rate [ 88 98 H Bilateral Throughout] Respiratory Rate Respiratory 16 18 Rate [Bilateral Throughout] Blood Pressure Blood Pressure [Right] O2 Sat by Pulse 96 Oximetry Constitutional: no acute distress, other (obese) Eyes: non-icteric ENT: oropharynx moist, other (Mallampati 4) Neck: supple, no JVD Ascultation: Bilateral: clear, wheezes, rhonchi (mild) Cardiovascular: regular rate and rhythm Gastrointestinal: normoactive bowel sounds, non-distended Integumentary: normal Extremities: no cyanosis, no edema, no ischemia or petechiae CBC and BMP: 12/08/17 06:26 12/08/17 06:26 Abnormal lab findings: Abnormal Labs 12/04/17 12/04/17 12/05/17 20:42 20:42 00:26 Hgb MCH RDW 16.5 H Lymph % (Auto) 10.6 L [place] % (Auto) 8.9 H Eos % (Auto) Lymph # 0.8 L Seg Neutrophils % 76.5 H Chloride Carbon Dioxide 18 L BUN Glucose 164 H POC Glucose 165 H Calcium Alkaline Phosphatase 169 H NT-Pro-B Natriuret Pep Urine WBC (Auto) 0612/05/17 12/05/17 05:13 07:15 07:15 Hgb 10.0 L MCH 27 L RDW 16.4 H Lymph % (Auto) [place] % (Auto) 9.5 H Eos % (Auto) 4.4 H Lymph # 1.1 L Seg Neutrophils % Chloride 110.1 H Carbon Dioxide 19 L BUN Glucose 120 H POC Glucose 137 H Calcium 8.3 L Alkaline Phosphatase NT-Pro-B Natriuret Pep Urine WBC (Auto) 12/05/17 12/05/17 12/05/17 11:22 13:51 15:42 Hgb MCH RDW Lymph % (Auto) [place] % (Auto) Eos % (Auto) Lymph # Seg Neutrophils % Chloride Carbon Dioxide BUN Glucose POC Glucose 143 H 171 H Calcium Alkaline Phosphatase NT-Pro-B Natriuret Pep 1167 H Urine WBC (Auto) 12/05/17 12/06/17 12/06/17 21:10 01:30 01:51 Hgb MCH RDW Lymph % (Auto) [place] % (Auto) Eos % (Auto) Lymph # Seg Neutrophils % Chloride Carbon Dioxide BUN Glucose POC Glucose 188 H < 40 L 62 L Calcium Alkaline Phosphatase NT-Pro-B Natriuret Pep Urine WBC (Auto) 12/06/17 12/06/17 12/06/17 05:41 12:28 14:08 Hgb MCH RDW Lymph % (Auto) [place] % (Auto) Eos % (Auto) Lymph # Seg Neutrophils % Chloride Carbon Dioxide BUN Glucose POC Glucose 242 H 266 H Calcium Alkaline Phosphatase NT-Pro-B Natriuret Pep Urine WBC (Auto) 77.0 H 12/06/17 12/06/17 12/06/17 14:49 17:03 21:30 Hgb MCH RDW Lymph % (Auto) [place] % (Auto) Eos % (Auto) Lymph # Seg Neutrophils % Chloride Carbon Dioxide BUN Glucose 179 H POC Glucose 385 H 65 L Calcium Alkaline Phosphatase NT-Pro-B Natriuret Pep Urine WBC (Auto) 12/07/17 12/07/17 12/07/17 05:20 11:44 17:02 Hgb MCH RDW Lymph % (Auto) [place] % (Auto) Eos % (Auto) Lymph # Seg Neutrophils % Chloride Carbon Dioxide BUN Glucose POC Glucose 130 H 397 H 189 H Calcium Alkaline Phosphatase NT-Pro-B Natriuret Pep Urine WBC (Auto) 12/07/17 12/08/17 12/08/17 21:30 06:26 06:26 Hgb MCH 27 L RDW 16.1 H Lymph % (Auto) [place] % (Auto) Eos % (Auto) Lymph # Seg Neutrophils % Chloride Carbon Dioxide BUN 22 H Glucose 158 H POC Glucose 246 H Calcium Alkaline Phosphatase NT-Pro-B Natriuret Pep Urine WBC (Auto) 12/08/17 06:43 Hgb MCH RDW Lymph % (Auto) [place] % (Auto) Eos % (Auto) Lymph # Seg Neutrophils % Chloride Carbon Dioxide BUN Glucose POC Glucose 156 H Calcium Alkaline Phosphatase NT-Pro-B Natriuret Pep Urine WBC (Auto)
[2017-12-08] MEDS: HumaLOG SUB-Q SCH ×2 (14:41→14:44)
[2017-12-09] MEDS ORDERED: LEVAQUIN PO SCH (10:00)
== END 2017-12-08 16:00 | disposition home or self-care (01) | DRG 974 ==
LOC: ED 19:17 → 3A 22:56
PROVIDERS: ADMIT Internal Medicine; ATTEND Hospitalist
DX: B20 Human immunodeficiency virus [HIV] disease (principal); J18.9 Pneumonia, unspecified organism; J96.01 Acute respiratory failure with hypoxia; Z68.41 Body mass index [BMI] 40.0-44.9, adult; N39.0 Urinary tract infection, site not specified; J44.0 Chronic obstructive pulmonary disease with (acute) lower respiratory infection; E11.9 Type 2 diabetes mellitus without complications; I25.10 Atherosclerotic heart disease of native coronary artery without angina pectoris; I27.20 Pulmonary hypertension, unspecified; G47.33 Obstructive sleep apnea (adult) (pediatric); E66.9 Obesity, unspecified; I35.0 Nonrheumatic aortic (valve) stenosis; F32.9 Major depressive disorder, single episode, unspecified; I11.0 Hypertensive heart disease with heart failure; I50.9 Heart failure, unspecified; J20.9 Acute bronchitis, unspecified; E78.5 Hyperlipidemia, unspecified; F03.90 Unspecified dementia, unspecified severity, without behavioral disturbance, psychotic disturbance, mood disturbance, and anxiety; Z88.0 Allergy status to penicillin; Z79.4 Long term (current) use of insulin; Z79.899 Other long term (current) drug therapy; Z95.1 Presence of aortocoronary bypass graft; Z95.2 Presence of prosthetic heart valve; Z82.49 Family history of ischemic heart disease and other diseases of the circulatory system
CPT/HCPCS: 36415; 71045; 80048; 80053; 81001; 82140; 82962; 83880; 84484; 85025; 85027; 87076; 87086; 87116; 87186; 93005; 93010; 93306; 94640; 94644; 94760; 96360; 96361; J1644; J1815; J1940; J1956; J7030